=== PATIENT | female | born 1985 | race Caucasian/White ===

== ENCOUNTER 2016-07-28 14:53 | Emergency (ER) | payer OTHER ==
[~2016-07-28] VITALS: Ht 165.1 cm; Wt 90.7 kg
--- NOTE | 2016-07-28 15:48 | PD ---
HPI Travel History International Travel<30 Days: No Contact w/Intl Traveler<30Days: No Known Affected Area: No History of Present Illness HPI This patient is a 30-year-old 1 para 0 EDC is October 17, 2016 at 28 weeks and 3 days she presents the chief complaint of irregular contractions and pressure she states on after walking 4-5 miles she began having contractions which stopped on Thursday she awoke with irregular contractions and stopped on Thursday she began having pressure and tearing sensation in her vagina and felt fluid leaking the baby has been active no vaginal bleeding care with HOGA. Amnisure is negative. care is significant collagen vascular disease She does have urinary frequency urgency no dysuria positive hesitancy Mild nausea no fever or chills History Past Medical History Narrative Medical Allergy to penicillin and sulfa Obstetric History Obstetric History First Past Surgical History Narrative Surgical Breast surgery polyp removed from her sinus tonsils and adenoids Family History Narrative Family History Heart disease hypertension hypothyroidism Social History Alcohol Use: No Tobacco Use: No Substance Abuse: No Review of Systems General / Constitutional: No: Fever, Weight Gain, Weight Loss, Chills, Other Eyes: No: Diploplia, Blurred Vision, Visual changes, Pain, Photophobia, Other HENT: No: Headaches, Vertigo, Dental Difficulties, Lightheadedness, Other Cardiovascular: No: Irregular Rhythm, Chest Pain or Discomfort, Palpitations, Tachycardia, Syncope, Varicosities, Edema, Cyanosis, Other Respiratory: No: Cough, Short of Breath, Wheezing, Other Gastrointestinal: Nausea Genitourinary: Urgency, Frequency, Hesitancy, Dribbling, Incontinence, Pelvic Pain Musculoskeletal: No: Limited ROM, Weakness, Cramping, Edema, Pain, Other Skin: No Rash, No Itching, No Dryness, No Lumps, No Change in Pigmentation, No Change in Nails, No Alopecia, No Lesions, No Breast Lumps, No Breast Tenderness , No Breast Swelling, No Other Neurologic: No: Weakness, Dizziness, Syncope, Focal Abnormalities, Coordination Problem, Headache, Slurred Speech, Seizures, Other Psychiatric: No: Anxiety, Depression, Suicidal Ideations, Disorder of Thought, Mood Disorder, Substance Abuse, Homicidal Ideation, Other Physical Exam Narrative GENERAL: Well-nourished, well-developed patient. Alert oriented 3 and cooperative no acute distress SKIN: Warm and dry. HEAD: Normocephalic and atraumatic. EYES: No scleral icterus. No injection or drainage. ENT: No nasal drainage noted. Mucous membranes pink. Airway patent. NECK: Supple, trachea midline. No JVD. CARDIOVASCULAR: Regular rate and rhythm without murmurs, gallops, or rubs. RESPIRATORY: Breath sounds equal bilaterally. No accessory muscle use. ABDOMEN/GI: Gravid consistent with 28 weeks soft nontender no palpable contractions no epigastric or right upper quadrant tenderness no rebound Gravid to [-] weeks size 28 Fundal Height: [-] GENITOURINARY: Speculum exam was done no fluid no blood no discharge cervix is visibly closed External Genitalia: intact and normal in appearance BUS glands: [-] Cervix: [-] Posterior firm Dilatation: [-] 0 Effacement: [-] 0 Station: [-] High Presentation: [-] Membranes: [intact Uterine Contractions: [-]0 FHT's: Category: [-] 1 Baseline: [-]140 Reactive: [-] + Variability: [-] Moderate Decels: [-] 0 EXTREMITIES: No cyanosis or edema. 2+ reflexes BACK: Nontender without obvious deformity. No CVA tenderness. NEUROLOGICAL: Awake and alert. Motor and sensory grossly within normal limits. Five out of 5 muscle strength in all muscle groups. Normal speech. Data Data Vital Signs Reviewed: Yes (blood pressures 126/85 pulse 116 she is afebrile) Orders Vital Signs (Adult) .ON ADMISSION (07/28/16 15:37) ^ Labor Status (07/28/16 15:37) Urinalysis - C+S If Indicated (07/28/16 15:37) ^ Hydration (07/28/16 15:37) Pamg-1 Test .ONCE (07/28/16 15:37) [facility] Medical Record Reviewed: No Interpretation(s) 30-year-old at 28 weeks 3 days Not in labor No clinical evidence of ruptured membranes [place] Moseley Rule out UTI Plan External monitoring By mouth fluid hydration Urinalysis Rule out UTI kick counts Macrobid one by mouth twice a day for 7 days Keep next appointment Physician Communication present on labor and delivery and is aware of the patient's presence Diagnosis Diagnosis: Primary Impression: False labor before 37 completed weeks of gestation Qualified Code: O47.02 - False labor before 37 completed weeks of gestation, second trimester Additional Impressions: 28 weeks gestation of UTI (urinary tract infection) during Qualified Code: O23.42 - UTI (urinary tract infection) during , second trimester Disposition: 01 DISCHARGE HOME Condition: Stable Seema Camara MD Jul 28, 2016 15:48
[2016-07-28 16:28] LABS: BLOOD, URINE NEG (NEG); COMMENT (UR) CULT NOT INDICATED; CULTURE IF INDICATED CULT NOT INDICATED; GLUCOSE,URINE NEG (NEG); HYALINE CAST, URINE 1 /lpf (RARE); KETONE, URINE NEG (NEG); MUCUS URINE FEW /lpf (OCC); NITRITE,URINE NEG (NEG); PH, URINE 6.5 (5.0-8.5); SQUAMOUS EPITHELIAL CELL URINE 1 /hpf (0-5); URINE COLOR YELLOW (YELLW/STRAW)
== END 2016-07-28 16:38 | disposition home or self-care (01) ==
LOC: HOBED 14:53
DX: O47.03 False labor before 37 completed weeks of gestation, third trimester (principal); O23.43 Unspecified infection of urinary tract in pregnancy, third trimester; Z3A.28 28 weeks gestation of pregnancy
CPT/HCPCS: 81001; 84112; 99284

== ENCOUNTER 2016-09-09 15:38 | Inpatient (IN) | payer OTHER ==
[~2016-09-09] VITALS: Ht 170.2 cm; Wt 90.7 kg
[2016-09-09] VITALS (13 sets, daily range): BP systolic 140–149; BP diastolic 90–103; PULSE 91–122; RESP 18–20; TEMP 98.3–98.8
[2016-09-09 16:51] LABS: HEMATOCRIT 36.6 % (35.0-46.0); MEAN CELL VOLUME 81.3 FL (80.0-100.0); MEAN CORPUSCULAR HEMOGLOBIN 27.7 PG (27.0-34.0); MEAN CORPUSCULAR HGB CONC 34.1 % (32.0-36.0); PLATELET COUNT 300 TH/MM3 (150-450); RED CELL DISTRIBUTION WIDTH 14.5 % (11.6-17.2); REVIEW FLAG FINAL; WHITE BLOOD COUNT 12.8 TH/MM3 (4.0-11.0)
[2016-09-09 17:03] LABS: BACTERIA, URINE OCC /hpf; BLOOD, URINE NEG (NEG); COMMENT (UR) CULT NOT INDICATED; CULTURE IF INDICATED CULT NOT INDICATED; GLUCOSE,URINE NEG (NEG); KETONE, URINE NEG (NEG); MUCUS URINE FEW /lpf (OCC); NITRITE,URINE NEG (NEG); SQUAMOUS EPITHELIAL CELL URINE 7 /hpf (0-5); URINE COLOR YELLOW (YELLW/STRAW)
[2016-09-09 17:16] LABS: ALT (GPT) 30 U/L (10-53); ANION GAP 11 MEQ/L (5-15); AST (GOT) 21 U/L (15-37); BICARBONATE 21.1 MEQ/L (21.0-32.0); BLOOD UREA NITROGEN 11 MG/DL (7-18); CHLORIDE 108 MEQ/L (98-107); GLOMERULAR FILTRATION RATE 97 ML/MIN (>89); SODIUM (NA) 140 MEQ/L (136-145); URIC ACID 4.2 MG/DL (2.6-6.0)
[2016-09-09 17:19] LABS: ALKALINE PHOSPHATASE 145 U/L (45-117); TOTAL BILIRUBIN ADULT 0.2 MG/DL (0.2-1.0)
--- NOTE | 2016-09-09 17:43 | PD ---
HPI Chief Complaint Elevated blood pressure Date Seen: Sep 09, 2016 Travel History International Travel<30 Days: No Contact w/Intl Traveler<30Days: No Known Affected Area: No History of Present Illness HPI This patient is 30-year-old white female at 34 weeks 4 days followed by the [facility] clinic Dr. Carrington, she is sent over by the office for evaluation of hypertension high blood pressure. She's been normotensive throughout has no history of hypertension until just this past week when she started to develop some elevated pressures. She states she just turned in a 24-hour urine for evaluation we do not have that result. She states her baby is active and she denies bleeding or leakage of fluid or pain or contractions, heart rate tracing today is reactive and no contractions seen Para: 0 : 1 History Past Medical History Medical History: Denies Significant Hx Social History Alcohol Use: No Tobacco Use: No Substance Abuse: No Allergies-Medications (Allergen,Severity, Reaction): Coded Allergies: Penicillin (Verified Allergy, Severe, anaphylaxis, 07/28/16) Sulfa (Verified Allergy, Severe, unknown, 07/28/16) Review of Systems General / Constitutional: No: Fever, Weight Gain, Chills, Other Eyes: Blurred Vision, No: Diploplia, Visual changes, Pain, Photophobia HENT: Headaches, No: Vertigo, Lightheadedness Cardiovascular: No: Irregular Rhythm, Chest Pain or Discomfort, Palpitations, Tachycardia, Syncope, Varicosities, Edema, Cyanosis Respiratory: Short of Breath, No: Cough, Other Gastrointestinal: No: Nausea, Vomiting, Diarrhea Genitourinary: No: Decreased Urinary Output, Oliguria Musculoskeletal: No: Limited ROM, Weakness, Cramping, Edema, Pain Skin: No Rash, No Itching, No Dryness, No Lumps, No Change in Pigmentation, No Change in Nails, No Alopecia, No Lesions Neurologic: Dizziness, Headache, No: Weakness, Syncope, Focal Abnormalities, Coordination Problem, Slurred Speech, Seizures Psychiatric: No: Depression, Suicidal Ideations, Homicidal Ideation Endocrine: No: Heat Intolerance, Cold Intolerance, Polydipsia, Polyuria, Other Physical Exam Narrative GENERAL: Well-nourished, well-developed patient. SKIN: Warm and dry. HEAD: Normocephalic and atraumatic. EYES: No scleral icterus. No injection or drainage. ENT: No nasal drainage noted. Mucous membranes pink. Airway patent. NECK: Supple, trachea midline. No JVD. CARDIOVASCULAR: Regular rate and rhythm without murmurs, gallops, or rubs. RESPIRATORY: Breath sounds equal bilaterally. No accessory muscle use. BREASTS: Bilateral exam showed no masses , no retractions, no nipple discharge. ABDOMEN/GI: Abdomen soft, non-tender, bowel sounds present, no rebound, no guarding Gravid to [34-] weeks size Fundal Height: [34-] GENITOURINARY: Membranes: [intact ] Uterine Contractions: [-none] FHT's: Category: [-1] Baseline: [-144] Reactive: [-yes] Variability: [mod-] Decels: [-none] EXTREMITIES: No cyanosis 2+ pitting edema. Is noted and pretibial BACK: Nontender without obvious deformity. No CVA tenderness. NEUROLOGICAL: Awake and alert. Motor and sensory grossly within normal limits. Five out of 5 muscle strength in all muscle groups. Normal speech. DTRs 2+ Data Data Vital Signs Reviewed: Yes Orders Vital Signs (Adult) .ON ADMISSION (09/09/16 16:31) ^ Labor Status (09/09/16 16:31) Urinalysis - C+S If Indicated (09/09/16 16:31) Cbc No Diff, Includes Plts (09/09/16 16:31) Comprehensive Metabolic Panel (09/09/16 16:31) Uric Acid (09/09/16 16:31) Labs Laboratory Tests Test 09/09/16 16:30 White Blood Count 12.8 Red Blood Count 4.50 Hemoglobin 12.5 Hematocrit 36.6 Mean Corpuscular Volume 81.3 Mean Corpuscular Hemoglobin 27.7 Mean Corpuscular Hemoglobin 34.1 Concent Red Cell Distribution Width 14.5 Platelet Count 300 Mean Platelet Volume 9.2 Urine Color YELLOW Urine Turbidity HAZY Urine pH 6.0 Urine Specific [place] 1.032 Urine Protein 30 Urine Glucose (UA) NEG Urine Ketones NEG Urine Occult Blood NEG Urine Nitrite NEG Urine Bilirubin NEG Urine Urobilinogen 2.0 Urine Leukocyte Esterase SMALL Urine RBC 1 Urine WBC 1 Urine Squamous Epithelial 7 Cells Urine Bacteria OCC Urine Mucus FEW Microscopic Urinalysis Comment CULT NOT INDICATED Sodium Level 140 Potassium Level 4.0 Chloride Level 108 Carbon Dioxide Level 21.1 Anion Gap 11 Blood Urea Nitrogen 11 Creatinine 0.71 Estimat Glomerular Filtration 97 Rate Random Glucose 98 Uric Acid 4.2 Calcium Level 8.7 Total Bilirubin 0.2 Aspartate Amino Transf 21 (AST/SGOT) Alanine Aminotransferase 30 (ALT/SGPT) Alkaline Phosphatase 145 Total Protein 6.9 Albumin 2.6 [facility] Interpretation(s) The patient is a 30-year-old white female at 34 weeks 4 days who is sent over from the [facility] office for evaluation of blood pressure. He is had hypertension related to over the last half week or so, the pressures here on the 140s over 90s she has 1-2+ protein on her urine dipstick all other hypertensive lab was within normal limits. The last week she's had frontal headaches on and off, some mild visual changes she's blurriness a little bit with her vision she is had some minimal right upper quadrant pain abdominally and states that she's gained 12 pounds in the last week which is all water retention and she swelling in her hands the legs& face. Her NST is reactive not rigo. Cervix impression at this time is one of developing preeclampsia at 34 weeks that would require close monitoring and therapy and possibly delivery if no improvement noted it 34 Week she may be a candidate for inpatient care until 35 weeks and then delivery but the decision was made by her private OB team Plan Plan for this patient was discussed Dr. Nam's covering physician for her group [facility], she agrees patient needs to be in the hospital at this time to receive her first shot of steroids she plans to come and see her with the next several hours for evaluation, her serum laboratories within normal limits urinalysis shows some significant proteinuria and because of her recent shortness of breath will shoot a Baseline chest x-ray Diagnosis Diagnosis: Primary Impression: Pre-eclampsia in third trimester Condition: Darin Zendejas II, MD Sep 09, 2016 17:43
[2016-09-09] MEDS ORDERED: SODIUM CHLORIDE 0.9% FLUSH 5 ML FLUSH IVF PRN (17:45)
[2016-09-09] MEDS ORDERED: ONDANSETRON ODT 4 MG TAB PO PRN (17:45)
[2016-09-09] MEDS ORDERED: BETAMETHASONE SOD PHOS/ACETATE SUSP 30 MG/5 ML VIAL IM ONE (19:15)
--- NOTE | 2016-09-09 20:10 | RADRPT ---
EXAM DATE/TIME: 09/09/2016 19:33 [place] COMPARISON: No previous studies available for comparison. INDICATIONS : Shortness of breath. MEDICAL HISTORY : Asthma. SURGICAL HISTORY : Breast augmentation. ENCOUNTER: Initial ACUITY: 1 day PAIN SCORE: 0/10 LOCATION: Bilateral chest FINDINGS: The heart size is normal. The lungs are clear. Costophrenic angles are clear. The hilar structures a re normal. There appears to be a breast implant seen on the left side. CONCLUSION: No acute abnormality is seen. Saturnino Nixon MD on September 09, 2016 at 19:55 Board Certified Radiologist. This report was verified electronically.
--- NOTE | 2016-09-09 20:32 | PD.OB.ANTE ---
Subjective Interval History 30 yo mwf at 34+ weeks to L & D with elevated pressures, intermittent RUQT , swelling, nausea and severe headache now resolved. Admitted to antepartum by Dr. Lai, At this time sitting uip in bed comfortabley with no HERNANDEZ and eating sandwich. BP 142/94. All labs reassuring 1+ protein in urine. Strip category 1 Objective Vital Signs Vital Signs Date Time Temp Pulse Resp B/P Pulse Ox O2 Delivery O2 Flow Rate FiO2 09/09/16 19:55 96 09/09/16 19:30 18 09/09/16 19:18 99 142/94 09/09/16 19:17 142/95 09/09/16 17:00 104 143/103 09/09/16 16:45 107 140/96 09/09/16 16:38 98.8 20 09/09/16 16:30 122 146/91 09/09/16 16:20 105 147/90 Lab & Micro Results Test 09/09/16 16:30 White Blood Count 12.8 TH/MM3 Red Blood Count 4.50 MIL/MM3 Hemoglobin 12.5 GM/DL Hematocrit 36.6 % Mean Corpuscular Volume 81.3 FL Mean Corpuscular Hemoglobin 27.7 PG Mean Corpuscular Hemoglobin 34.1 % Concent Red Cell Distribution Width 14.5 % Platelet Count 300 TH/MM3 Mean Platelet Volume 9.2 FL Urine Color YELLOW Urine Turbidity HAZY Urine pH 6.0 Urine Specific [place] 1.032 Urine Protein 30 mg/dL Urine Glucose (UA) NEG mg/dL Urine Ketones NEG mg/dL Urine Occult Blood NEG Urine Nitrite NEG Urine Bilirubin NEG Urine Urobilinogen 2.0 MG/DL Urine Leukocyte Esterase SMALL Urine RBC 1 /hpf Urine WBC 1 /hpf Urine Squamous Epithelial 7 /hpf Cells Urine Bacteria OCC /hpf Urine Mucus FEW /lpf Microscopic Urinalysis Comment CULT NOT INDICATED Sodium Level 140 MEQ/L Potassium Level 4.0 MEQ/L Chloride Level 108 MEQ/L Carbon Dioxide Level 21.1 MEQ/L Anion Gap 11 MEQ/L Blood Urea Nitrogen 11 MG/DL Creatinine 0.71 MG/DL Estimat Glomerular Filtration 97 ML/MIN Rate Random Glucose 98 MG/DL Uric Acid 4.2 MG/DL Calcium Level 8.7 MG/DL Total Bilirubin 0.2 MG/DL Aspartate Amino Transf 21 U/L (AST/SGOT) Alanine Aminotransferase 30 U/L (ALT/SGPT) Alkaline Phosphatase 145 U/L Total Protein 6.9 GM/DL Albumin 2.6 GM/DL Physical Exam GENERAL: Well-nourished, well-developed patient. CARDIOVASCULAR: Regular rate and rhythm without murmurs, gallops, or rubs. RESPIRATORY: Breath sounds equal bilaterally. No accessory muscle use. ABDOMEN/GI: Abdomen soft, non-tender. Fundus: [-] GENITOURINARY: category 1 strip EXTREMITIES: No cyanosis 2+ edema Normal DTRs, non-tender, without signs of DVT. Assessment and Plan Assessment and Plan pre eclampsia not severe has time for steroid administration prior to delivery unless condition deteriorates Reba Nam MD Sep 09, 2016 20:32
[2016-09-09] MEDS: SODIUM CHLORIDE 0.9% FLUSH 5 ML FLUSH IVF SCH (21:00)
[2016-09-09] MEDS: FAMOTIDINE 20 MG TAB PO SCH (21:02)
[2016-09-10] VITALS (24 sets, daily range): BP systolic 131–142; BP diastolic 79–91; PULSE 81–120; RESP 18; TEMP 97.8–98.1
[2016-09-10] MEDS: ZOLPIDEM TARTRATE 5 MG TAB PO PRN ×2 (03:15→21:00)
[2016-09-10] MEDS: ACETAMINOPHEN 325 MG TAB PO PRN (03:25)
--- NOTE | 2016-09-10 08:38 | PD.OB.ANTE ---
Subjective Diagnosis: (1) Pre-eclampsia in third trimester Interval History still slight HERNANDEZ, no scotomata, vision slightly blurry, has RUQ discomfort when pressing with palpation Antepartum ROS: Reports: movement normal Objective Vital Signs Vital Signs Date Time Temp Pulse Resp B/P Pulse Ox O2 Delivery O2 Flow Rate FiO2 09/10/16 03:07 81 134/79 09/10/16 03:07 97.9 18 09/09/16 22:00 18 09/09/16 21:06 149/90 09/09/16 21:06 91 09/09/16 20:25 100 09/09/16 20:00 98.3 09/09/16 20:00 18 09/09/16 19:55 96 09/09/16 19:30 18 09/09/16 19:18 99 142/94 09/09/16 19:17 142/95 09/09/16 17:00 104 143/103 09/09/16 16:45 107 140/96 09/09/16 16:38 98.8 20 09/09/16 16:30 122 146/91 09/09/16 16:20 105 147/90 Lab & Micro Results Test 09/09/16 16:30 White Blood Count 12.8 TH/MM3 Red Blood Count 4.50 MIL/MM3 Hemoglobin 12.5 GM/DL Hematocrit 36.6 % Mean Corpuscular Volume 81.3 FL Mean Corpuscular Hemoglobin 27.7 PG Mean Corpuscular Hemoglobin 34.1 % Concent Red Cell Distribution Width 14.5 % Platelet Count 300 TH/MM3 Mean Platelet Volume 9.2 FL Urine Color YELLOW Urine Turbidity HAZY Urine pH 6.0 Urine Specific [place] 1.032 Urine Protein 30 mg/dL Urine Glucose (UA) NEG mg/dL Urine Ketones NEG mg/dL Urine Occult Blood NEG Urine Nitrite NEG Urine Bilirubin NEG Urine Urobilinogen 2.0 MG/DL Urine Leukocyte Esterase SMALL Urine RBC 1 /hpf Urine WBC 1 /hpf Urine Squamous Epithelial 7 /hpf Cells Urine Bacteria OCC /hpf Urine Mucus FEW /lpf Microscopic Urinalysis Comment CULT NOT INDICATED Sodium Level 140 MEQ/L Potassium Level 4.0 MEQ/L Chloride Level 108 MEQ/L Carbon Dioxide Level 21.1 MEQ/L Anion Gap 11 MEQ/L Blood Urea Nitrogen 11 MG/DL Creatinine 0.71 MG/DL Estimat Glomerular Filtration 97 ML/MIN Rate Random Glucose 98 MG/DL Uric Acid 4.2 MG/DL Calcium Level 8.7 MG/DL Total Bilirubin 0.2 MG/DL Aspartate Amino Transf 21 U/L (AST/SGOT) Alanine Aminotransferase 30 U/L (ALT/SGPT) Alkaline Phosphatase 145 U/L Total Protein 6.9 GM/DL Albumin 2.6 GM/DL Physical Exam GENERAL: Well-nourished, well-developed patient. CARDIOVASCULAR: Regular rate and rhythm without murmurs, gallops, or rubs. RESPIRATORY: Breath sounds equal bilaterally. No accessory muscle use. ABDOMEN/GI: Abdomen soft, non-tender. Fundus: [-] GENITOURINARY: External Genitalia: intact and normal in appearance Cervix: [-] deferred Dilatation: [-] Effacement: [-] Station: [-] Presentation: [-] Membranes: [-] Uterine Contractions: [-] FHT's: Category: [-]1 Baseline: [-] Reactive: [-]R Variability: [-] Decels: [-] EXTREMITIES: No cyanosis, min edema, non-tender, without signs of DVT. Assessment and Plan Assessment and Plan pre eclampsia not severe, labs normal, 24 hr urine pending has time for steroid administration prior to delivery unless condition deteriorates Lauren Carrington MD Sep 10, 2016 08:38
[2016-09-10] MEDS: SODIUM CHLORIDE 0.9% FLUSH 5 ML FLUSH IVF SCH (09:00)
[2016-09-10 12:18] LABS: AUTOMATED NEUTROPHIL # 16.5 TH/MM3 (1.8-7.7); BASOPHIL % 0.2 % (0.0-2.0); HEMATOCRIT 36.6 % (35.0-46.0); HEMO FLAGS DIFF FINAL; LYMPH % 7.7 % (9.0-44.0); LYMPHOCYTE # 1.4 TH/MM3 (1.0-4.8); MEAN CELL VOLUME 82.6 FL (80.0-100.0); MEAN CORPUSCULAR HEMOGLOBIN 27.6 PG (27.0-34.0); MEAN CORPUSCULAR HGB CONC 33.4 % (32.0-36.0); MONO % 4.7 % (0.0-8.0); NEUT % 87.4 % (16.0-70.0); PLATELET COUNT 294 TH/MM3 (150-450); RED BLOOD COUNT 4.44 MIL/MM3 (4.00-5.30); WHITE BLOOD COUNT 18.9 TH/MM3 (4.0-11.0)
[2016-09-10 12:39] LABS: ALKALINE PHOSPHATASE 149 U/L (45-117); ALT (GPT) 27 U/L (10-53); AST (GOT) 17 U/L (15-37); INDIRECT BILIRUBIN 0.1 MG/DL (0.0-0.8); TOTAL BILIRUBIN ADULT 0.2 MG/DL (0.2-1.0); URIC ACID 4.5 MG/DL (2.6-6.0)
[2016-09-10 13:55] LABS: AMPHETAMINE, URINE NEG (NEG); BARBITURATES, URINE NEG (NEG); COCAINE, URINE NEG (NEG)
[2016-09-10] MEDS: FAMOTIDINE 20 MG TAB PO SCH ×2 (17:08→21:00)
[2016-09-10] MEDS ORDERED: BETAMETHASONE SOD PHOS/ACETATE SUSP 30 MG/5 ML VIAL IM ONE (19:15)
--- NOTE | 2016-09-10 19:43 | HHI.DCPOC ---
Discharge Care Plan Your Health Problems Are: Abdominal pain Report Symptoms to Your Doctor -Temperate above 100.5 degrees -Redness, of incision or excessive or foul smelling drainage -Unusual pain or calf pain -Increased vaginal bleeding -Painful or difficulty urinating -Feelings of extreme sadness or anxiety after 2 weeks Goals to Promote Your Health * To prevent worsening of your condition and complications * To maintain your health at the optimal level Directions to Meet Your Goals Take your medications as prescribed Follow your dietary instruction Follow activity as directed Ensure plenty of rest for recovery Drink fluids for hydration Keep your appointments as scheduled Take your immunizations and boosters as scheduled If your symptoms worsen call your PCP, if no PCP go to Urgent Care Center or Emergency Room Smoking is Dangerous to Your Health. Avoid second hand smoke Call the 24-hour crisis hotline for domestic abuse at Lauren Carrington MD Sep 10, 2016 19:43
[2016-09-11] MEDS: ACETAMINOPHEN 325 MG TAB PO PRN ×3 (07:10→16:56)
[2016-09-11] MEDS: FAMOTIDINE 20 MG TAB PO SCH (09:38)
[2016-09-11] MEDS ORDERED: SODIUM CHLOR 0.9% 1000 ML INJ 1,000 ML OTHER PRN (10:24)
[2016-09-11] MEDS ORDERED: MINERAL OIL 10 ML VIAL TOPICAL PRN (10:30)
[2016-09-11] MEDS ORDERED: SODIUM CHLORIDE 0.9% FLUSH 5 ML FLUSH IV FLUSH PRN (10:30)
[2016-09-11] MEDS ORDERED: OXYTOCIN 30 UNITS-500ML PREMIX 500 ML IV ONE (10:30)
[2016-09-11] MEDS ORDERED: MISOPROSTOL 25 MCG SUPP VAGINAL ONE ×2 (10:30→20:30)
[2016-09-11] MEDS ORDERED: LIDOCAINE HCL 1% 50 ML VIAL I-DERMAL PRN (10:30)
[2016-09-11] MEDS ORDERED: CITRIC ACID-SODIUM CITRATE LIQ 30 ML UDC PO SCH (10:30)
[2016-09-11] MEDS ORDERED: LIDOCAINE HCL 1% 50 ML VIAL INFIL PRN (10:30)
[2016-09-11] MEDS ORDERED: CALCIUM GLUCONATE 10% 1 GM/10 ML VIAL IV PUSH PRN (10:45)
[2016-09-11] MEDS ORDERED: MAGNESIUM SULFATE 4 GM PREMIX 100 ML IV ONE (10:45)
[2016-09-11] MEDS ORDERED: ONDANSETRON ODT 4 MG TAB PO PRN (10:45)
[2016-09-11] MEDS ORDERED: SODIUM CHLOR 0.9% 1000 ML INJ 1,000 ML IV PRN (10:46)
[2016-09-11 11:26] LABS: AUTOMATED NEUTROPHIL # 17.5 TH/MM3 (1.8-7.7); BASOPHIL % 0.1 % (0.0-2.0); EOSINOPHIL % 0.1 % (0.0-4.0); HEMATOCRIT 39.2 % (35.0-46.0); HEMO FLAGS DIFF FINAL; LYMPH % 9.1 % (9.0-44.0); LYMPHOCYTE # 1.9 TH/MM3 (1.0-4.8); MEAN CELL VOLUME 82.6 FL (80.0-100.0); MEAN CORPUSCULAR HEMOGLOBIN 27.2 PG (27.0-34.0); MEAN CORPUSCULAR HGB CONC 32.9 % (32.0-36.0); MONO % 7.1 % (0.0-8.0); NEUT % 83.6 % (16.0-70.0); PLATELET COUNT 332 TH/MM3 (150-450); RED BLOOD COUNT 4.74 MIL/MM3 (4.00-5.30); RED CELL DISTRIBUTION WIDTH 14.6 % (11.6-17.2); WHITE BLOOD COUNT 20.9 TH/MM3 (4.0-11.0)
--- NOTE | 2016-09-11 11:33 | PD.OB.ANTE ---
Subjective Diagnosis: (1) Pre-eclampsia in third trimester Diagnosis: Principal Interval History Pt with continued headaches, blurry vision, epigastric and RUQ pain Good FM, irreg contraction. No lof/vb Objective Vital Signs Vital Signs Date Time Temp Pulse Resp B/P Pulse Ox O2 Delivery O2 Flow Rate FiO2 09/10/16 20:57 18 09/10/16 20:47 97 139/83 09/10/16 20:05 101 09/10/16 20:00 103 09/10/16 19:46 82 139/83 09/10/16 19:45 83 09/10/16 19:40 98.1 09/10/16 19:40 96 09/10/16 19:39 18 09/10/16 17:11 107 137/84 09/10/16 17:10 97.8 18 09/10/16 12:38 118 142/83 09/10/16 12:35 120 09/10/16 12:30 119 09/10/16 12:27 18 09/10/16 12:25 114 09/10/16 12:20 113 09/10/16 12:15 115 09/10/16 12:10 112 09/10/16 12:05 116 09/10/16 12:00 107 Lab & Micro Results Test 09/10/16 09/11/16 11:42 11:00 White Blood Count 18.9 TH/MM3 20.9 TH/MM3 Red Blood Count 4.44 MIL/MM3 4.74 MIL/MM3 Hemoglobin 12.2 GM/DL 12.9 GM/DL Hematocrit 36.6 % 39.2 % Mean Corpuscular Volume 82.6 FL 82.6 FL Mean Corpuscular Hemoglobin 27.6 PG 27.2 PG Mean Corpuscular Hemoglobin 33.4 % 32.9 % Concent Red Cell Distribution Width 14.0 % 14.6 % Platelet Count 294 TH/MM3 332 TH/MM3 Mean Platelet Volume 9.0 FL 9.1 FL Neutrophils (%) (Auto) 87.4 % 83.6 % Lymphocytes (%) (Auto) 7.7 % 9.1 % Monocytes (%) (Auto) 4.7 % 7.1 % Eosinophils (%) (Auto) 0.0 % 0.1 % Basophils (%) (Auto) 0.2 % 0.1 % Neutrophils # (Auto) 16.5 TH/MM3 17.5 TH/MM3 Lymphocytes # (Auto) 1.4 TH/MM3 1.9 TH/MM3 Monocytes # (Auto) 0.9 TH/MM3 1.5 TH/MM3 Eosinophils # (Auto) 0.0 TH/MM3 0.0 TH/MM3 Basophils # (Auto) 0.0 TH/MM3 0.0 TH/MM3 CBC Comment DIFF FINAL DIFF FINAL Differential Comment Uric Acid 4.5 MG/DL Total Bilirubin 0.2 MG/DL Direct Bilirubin LESS THAN 0.1 MG/DL Indirect Bilirubin 0.1 MG/DL Aspartate Amino Transf 17 U/L (AST/SGOT) Alanine Aminotransferase 27 U/L (ALT/SGPT) Alkaline Phosphatase 149 U/L Total Protein 6.8 GM/DL Albumin 2.5 GM/DL Physical Exam GENERAL: Well-nourished, well-developed patient. CARDIOVASCULAR: Regular rate and rhythm without murmurs, gallops, or rubs. RESPIRATORY: Breath sounds equal bilaterally. No accessory muscle use. ABDOMEN/GI: Abdomen soft, non-tender. Fundus: [-] GENITOURINARY: External Genitalia: intact and normal in appearance Cervix: cl/20/-2 Presentation: [facility] Membranes: intact Uterine Contractions: [-] FHT's: Category:I Baseline:140 Reactive:y Variability:mod Decels: [-] EXTREMITIES: No cyanosis or edema, non-tender, without signs of DVT. Reflexes 3 + , + clonus Assessment and Plan Problem List: (1) Pre-eclampsia in third trimester Status: Acute Assessment and Plan 30 yo G1 at 34w5d withPre-eclampsia with severe features including hyper- reflexia, clonus, headache, vis changes and ruq pain. Will proceed with induction and initiation of magnesium. will start iol with misoprostol and then re-evaluate for further management. 1) Pre-e with severe features- magnesium prophylaxis, strict I/O's. am labs pending 2) IOL- misoprostol ordered. aware of possibility of prolonged induction. GBS rapid swab performed 3) Anna Danlos- nl echo 4) Fetus cephalic, Cat I NgYamileth dubois MD Sep 11, 2016 11:33
[2016-09-11] MEDS: MAGNESIUM SULFATE 40 GM PREMIX 1,000 ML IV SCH (11:36)
[2016-09-11] MEDS ORDERED: LABETALOL HCL 100 MG/20 ML VIAL IV PUSH PRN (11:45)
[2016-09-11 11:48] LABS: ALKALINE PHOSPHATASE 151 U/L (45-117); ALT (GPT) 31 U/L (10-53); ANION GAP 11 MEQ/L (5-15); AST (GOT) 39 U/L (15-37); BICARBONATE 19.9 MEQ/L (21.0-32.0); BLOOD UREA NITROGEN 11 MG/DL (7-18); CHLORIDE 108 MEQ/L (98-107); GLOMERULAR FILTRATION RATE 71 ML/MIN (>89); POTASSIUM 4.5 MEQ/L (3.5-5.1); SODIUM (NA) 139 MEQ/L (136-145); TOTAL BILIRUBIN ADULT 0.4 MG/DL (0.2-1.0); URIC ACID 4.7 MG/DL (2.6-6.0)
[2016-09-11] MEDS ORDERED: TRICTAB PO (12:59)
[2016-09-11] MEDS ORDERED: MISOPROSTOL 25 MCG SUPP VAGINAL PRN (14:30)
[2016-09-11] MEDS: LACTATED RINGER'S 1000 ML INJ 1,000 ML IV SCH (16:06)
[2016-09-11] MEDS ORDERED: fentaNYL 2MCG-BUPIV 0.125% INJ 100 ML ONE (17:35)
--- NOTE | 2016-09-11 17:37 | PD.LABORPN ---
Subjective Subjective Pt needing tylenol for headache recently. epigastric and ruq pain presently improved Objective Vital Signs 130-140/70-80's on OBTV vitals adequate uop Objective Pelvic Exam: Cervix: 08/15/-2, soft. Marcos bulb placed for mechanical dilation Cephalic Membranes: [intact Uterine Contractions: 5-6min FHT's: Category: I Baseline:140 Reactive:n Variability: mod Decels: [-] Assessment/Plan Problem List: (1) Pre-eclampsia in third trimester Assessment and Plan 30 yo G1 at 34w5d with Pre-eclampsia with severe features including hyper- reflexia, clonus, headache, vis changes and ruq pain. 1) Pre-e with severe features- magnesium prophylaxis, strict I/O's. am labs noting an elevation of liver enzymes compared to time of admission 2) IOL- misoprostol second dose placed an hour ago. FB placed with speculum during this check, pt tolerated well. aware of possibility of prolonged induction. 3) Anna Danlos- nl echo 4) Fetus cephalic, Cat I. s/p bms on 09/09 and 09/10/16 5) GBS negative Yamileth Ng MD Sep 11, 2016 17:37
[2016-09-11] MEDS ORDERED: OXYTOCIN 30 UNITS-500ML PREMIX 500 ML IV SCH (20:30)
[2016-09-11] MEDS: SODIUM CHLORIDE 0.9% FLUSH 5 ML FLUSH IV FLUSH SCH (21:00)
[2016-09-12] MEDS ORDERED: OXYTOCIN 30 UNITS-500ML PREMIX 500 ML IV SCH (08:00)
--- NOTE | 2016-09-12 08:02 | PD.LABORPN ---
Subjective Subjective Patient has less H/A pain and resolving "blurred " vision of right eye. Denies N /V/D; Pain is @4-5/10. Objective Objective Pelvic Exam: Cervix: [-] Dilatation: 4-5 Effacement: 60 Station: -2 Presentation:vtx Membranes: AROM Uterine Contractions: irregular FHT's: Category: 1 Baseline: [-] Reactive: [-] Variability: [-] Decels: no Assessment/Plan Problem List: (1) Pre-eclampsia in third trimester Assessment and Plan HD#3, IOL, AROM,Pitocin iv. c/o H/A and visual disturbance have improved,exam is nonfocal neurologically. Will anticipate unless her clinical symptoms warrant CD. Order pre-eclampsia labs this morning. Ciaran Hope MD Sep 12, 2016 08:02
[2016-09-12 08:58] LABS: HEMATOCRIT 36.8 % (35.0-46.0); MEAN CORPUSCULAR HEMOGLOBIN 26.9 PG (27.0-34.0); MEAN CORPUSCULAR HGB CONC 32.5 % (32.0-36.0); PLATELET COUNT 280 TH/MM3 (150-450); RED BLOOD COUNT 4.44 MIL/MM3 (4.00-5.30); RED CELL DISTRIBUTION WIDTH 14.6 % (11.6-17.2); REVIEW FLAG FINAL; WHITE BLOOD COUNT 16.2 TH/MM3 (4.0-11.0)
[2016-09-12] MEDS ORDERED: ePHEDrine/NS 25 MG/5 ML SYR ONE (08:58)
[2016-09-12] MEDS ORDERED: fentaNYL 2MCG-BUPIV 0.125% INJ 100 ML ONE (08:58)
[2016-09-12] MEDS: SODIUM CHLORIDE 0.9% FLUSH 5 ML FLUSH IV FLUSH SCH (09:00)
[2016-09-12] MEDS: FAMOTIDINE 20 MG TAB PO SCH (09:00)
[2016-09-12] MEDS: LACTATED RINGER'S 1000 ML INJ 1,000 ML IV SCH ×2 (09:20→15:10)
[2016-09-12 09:32] LABS: BICARBONATE 23.3 MEQ/L (21.0-32.0); MAGNESIUM 4.4 MG/DL (1.5-2.5); POTASSIUM 3.6 MEQ/L (3.5-5.1)
[2016-09-12] MEDS ORDERED: DO NOT ADMINISTER ANTICOAGULANTS XX PRN (10:45)
[2016-09-12] MEDS ORDERED: ePHEDrine/NS 25 MG/5 ML SYR IV PRN (10:45)
[2016-09-12] MEDS ORDERED: NO SYSTEM NARCOTICS XX PRN (10:45)
[2016-09-12] MEDS ORDERED: fentaNYL 2MCG-BUPIV 0.125% 100 ML EPIDURAL SCH (10:45)
[2016-09-12] MEDS: ACETAMINOPHEN 325 MG TAB PO PRN (12:43)
--- NOTE | 2016-09-12 15:20 | PD.OB.DELI ---
Anesthesia: Epidural Episiotomy: None Vaginal Delivery: Normal Presentation: Occiput anterior Nuchal Cord: None Delayed cord clamping (45 sec): No Infant: Female One Minute : 7 Five Minute : 8 Care: Suctioned, Spontaneous crying, Responded to stimulation Placenta: Spontaneous delivery, Intact, 3 vessel cord Laceration: Vaginal laceration (left labial minor) Repair: Vicryl Ciaran Canales MD Sep 12, 2016 15:20
--- NOTE | 2016-09-12 15:27 | HHI.DCPOC ---
Discharge Care Plan Your Health Problems Are: Abdominal pain Fever, temperature>100.4 Shortness of breath Vaginal delivery Report Symptoms to Your Doctor -Temperate above 100.5 degrees -Redness, of incision or excessive or foul smelling drainage -Unusual pain or calf pain -Increased vaginal bleeding -Painful or difficulty urinating -Feelings of extreme sadness or anxiety after 2 weeks Goals to Promote Your Health * To prevent worsening of your condition and complications * To maintain your health at the optimal level Directions to Meet Your Goals Take your medications as prescribed Follow your dietary instruction Follow activity as directed Ensure plenty of rest for recovery Drink fluids for hydration Keep your appointments as scheduled Take your immunizations and boosters as scheduled If your symptoms worsen call your PCP, if no PCP go to Urgent Care Center or Emergency Room Smoking is Dangerous to Your Health. Avoid second hand smoke Call the 24-hour crisis hotline for domestic abuse at Ciaran Hope MD Sep 12, 2016 15:27
[2016-09-12] MEDS ORDERED: ONDANSETRON ODT 4 MG TAB PO PRN (15:30)
[2016-09-12] MEDS ORDERED: SODIUM CHLORIDE 0.9% FLUSH 5 ML FLUSH IV PRN (15:30)
[2016-09-12] MEDS ORDERED: ALUMINUM/MAGNESIUM/SIMETH 30 ML CUP PO PRN (15:30)
[2016-09-12] MEDS ORDERED: ACETAMINOPHEN 325 MG TAB PO PRN (15:30)
[2016-09-12] MEDS ORDERED: BENZOCAINE 20% TOPICAL SPRAY 60 ML CAN TOPICAL PRN (15:30)
[2016-09-12] MEDS ORDERED: WITCH HAZEL 50%/GLYCERIN 12.5% 40 PAD JAR TOPICAL PRN (15:30)
[2016-09-12] MEDS ORDERED: OXYTOCIN 10 UNIT/ML AMP XX ONE (15:30)
[2016-09-12] MEDS ORDERED: ZOLPIDEM TARTRATE 5 MG TAB PO PRN (15:30)
[2016-09-12] MEDS ORDERED: DIPHTH/TETANUS/ACEL PERTUSSIS (BOOSTER) 0.5 ML VIAL/PFS IM ONE (16:00)
[2016-09-12] MEDS ORDERED: MEASLES, MUMPS, RUBELLA VACCINE 0.5 ML VIAL SQ ONE (16:00)
[2016-09-12] MEDS: IBUPROFEN 600 MG TAB PO PRN (16:58)
[2016-09-12] MEDS ORDERED: AMMONIA AROMATIC INHALANT 0.33 ML ONE (17:43)
[2016-09-12] MEDS: MAGNESIUM SULFATE 40 GM PREMIX 1,000 ML IV SCH (18:19)
[2016-09-12] MEDS ORDERED: SODIUM CHLORIDE 0.9% FLUSH 5 ML FLUSH IV SCH (21:00)
[2016-09-12] MEDS: ZOLPIDEM TARTRATE 5 MG TAB PO PRN (21:56)
[2016-09-13] MEDS: oxyCODONE/ACETAMINOPHEN 5 MG/325 MG TAB PO PRN ×2 (04:10→19:20)
--- NOTE | 2016-09-13 11:54 | HHI.OB ---
Subjective Post Day: 1 Remarks PPD#1; stable, doing well Objective Objective Remarks GENERAL: Well-nourished, well-developed patient. CARDIOVASCULAR: Regular rate and rhythm without murmurs, gallops, or rubs. RESPIRATORY: Breath sounds equal bilaterally. No accessory muscle use. ABDOMEN/GI: Abdomen soft, non-tender. Fundus: Firm, non-tender at umbilicus. GENITOURINARY: Light to moderate bleeding. EXTREMITIES: No cyanosis or edema, non-tender, without signs of DVT. Medications and IVs Current Medications Medications (Trade) Dose Ordered Sig/Lili Route Start Time Stop Time Status Last Admin (Ambien) 5 mg HS PRN PO 09/09/16 17:45 09/12/16 21:56 (Pepcid) 20 mg Q12HR PO 09/09/16 21:00 09/11/16 09:38 (NS Flush) 2 ml BID IV FLUSH 09/11/16 21:00 IV Flush 2 ml 2 ml UNSCH PRN IV FLUSH 09/11/16 10:30 (NS 1000 ml Inj) 1,000 ml @ 100 mls/hr Q10H PRN IV 09/11/16 10:46 (fentaNYL INJ) 50 mcg Q1H PRN IV PUSH 09/11/16 10:30 09/11/16 17:14 (fentaNYL INJ) 100 mcg Q1H PRN IV PUSH 09/11/16 10:30 09/12/16 09:26 Mineral Oil 10 ml 10 ml UNSCH PRN TOPICAL 09/11/16 10:30 (Magnesium Sulfate 40 Gm Premix) 1,000 ml @ 50 mls/hr Q20H IV 09/11/16 10:31 09/12/16 18:19 (Calcium Gluconate Inj) 1 gm UNSCH PRN IV PUSH 09/11/16 10:45 Ondansetron HCl 4 mg 4 mg Q6H PRN PO 09/11/16 10:45 Lactated Ringer's 1,000 ml @ 75 mls/hr [id number] IV 09/11/16 12:30 09/12/16 09:20 Oxytocin 500 ml @ 0 mls/hr TITRATE IV 09/12/16 08:00 (fentaNYL 2MCG-BUPIV 0.125% INJ) 100 ml @ 0 mls/hr TITRATE EPIDURAL 09/12/16 10:45 (Tylenol) 650 mg Q4H PRN PO 09/12/16 15:30 (Motrin) 600 mg Q6H PRN PO 09/12/16 15:30 09/12/16 16:58 (Percocet 5-325 Mg) 1 tab Q4H PRN PO 09/12/16 15:30 09/13/16 04:10 (Americaine 20% Top Spr) 1 spray Q4H PRN TOPICAL 09/12/16 15:30 (Tucks Pads) 1 applic QID PRN TOPICAL 09/12/16 15:30 (Etelvina-Colace) 2 tab Q12H PRN PO 09/12/16 15:30 (Mag-Al Plus Susp Liq) 15 ml Q8H PRN PO 09/12/16 15:30 Assessment/Plan Problem List: (1) Pre-eclampsia in third trimester Assessment and Plan 30 yo G1 at 34w5d withPre-eclampsia, S/P , BP stable; doing well. Plan d/c magnesium,tranfer to 1 Ciaran Swanson MD Sep 13, 2016 11:54
[2016-09-13] MEDS: IBUPROFEN 600 MG TAB PO PRN (14:54)
[2016-09-13] MEDS: FAMOTIDINE 20 MG TAB PO SCH (21:00)
[2016-09-13] MEDS: SODIUM CHLORIDE 0.9% FLUSH 5 ML FLUSH IV FLUSH SCH (21:00)
[2016-09-13] MEDS: DOCUSATE SODIUM 50 MG/SENNA 8.6 MG TAB PO PRN ×2 (22:40→22:42)
[2016-09-14] MEDS: oxyCODONE/ACETAMINOPHEN 5 MG/325 MG TAB PO PRN ×4 (00:14→19:45)
[2016-09-14] MEDS: LACTATED RINGER'S 1000 ML INJ 1,000 ML IV SCH (01:06)
[2016-09-14] MEDS: DOCUSATE SODIUM 50 MG/SENNA 8.6 MG TAB PO PRN ×2 (07:49→19:45)
[2016-09-14] MEDS: IBUPROFEN 600 MG TAB PO PRN ×3 (07:49→19:45)
--- NOTE | 2016-09-14 10:41 | HHI.OB ---
Subjective Post Day: 2 Remarks PPD#2; S/P , Pre-eclamptic, BPR stable, No c/o Objective Objective Remarks GENERAL: Well-nourished, well-developed patient. CARDIOVASCULAR: Regular rate and rhythm without murmurs, gallops, or rubs. RESPIRATORY: Breath sounds equal bilaterally. No accessory muscle use. ABDOMEN/GI: Abdomen soft, non-tender. Fundus: Firm, non-tender at umbilicus. GENITOURINARY: Light to moderate bleeding. EXTREMITIES: No cyanosis or edema, non-tender, without signs of DVT. Medications and IVs Current Medications Medications (Trade) Dose Ordered Sig/Lili Route Start Time Stop Time Status Last Admin (Ambien) 5 mg HS PRN PO 09/09/16 17:45 09/12/16 21:56 (Pepcid) 20 mg Q12HR PO 09/09/16 21:00 09/11/16 09:38 (NS Flush) 2 ml BID IV FLUSH 09/11/16 21:00 09/13/16 21:00 IV Flush 2 ml 2 ml UNSCH PRN IV FLUSH 09/11/16 10:30 (NS 1000 ml Inj) 1,000 ml @ 100 mls/hr Q10H PRN IV 09/11/16 10:46 (fentaNYL INJ) 50 mcg Q1H PRN IV PUSH 09/11/16 10:30 09/11/16 17:14 (fentaNYL INJ) 100 mcg Q1H PRN IV PUSH 09/11/16 10:30 09/12/16 09:26 (Muri-Lube Oil) 10 ml UNSCH PRN TOPICAL 09/11/16 10:30 (Calcium Gluconate Inj) 1 gm UNSCH PRN IV PUSH 09/11/16 10:45 Ondansetron HCl 4 mg 4 mg Q6H PRN PO 09/11/16 10:45 Lactated Ringer's 1,000 ml @ 75 mls/hr [id number] IV 09/11/16 12:30 09/12/16 09:20 Oxytocin 500 ml @ 0 mls/hr TITRATE IV 09/12/16 08:00 (fentaNYL 2MCG-BUPIV 0.125% INJ) 100 ml @ 0 mls/hr TITRATE EPIDURAL 09/12/16 10:45 (Tylenol) 650 mg Q4H PRN PO 09/12/16 15:30 (Motrin) 600 mg Q6H PRN PO 09/12/16 15:30 09/14/16 07:49 (Percocet 5-325 Mg) 1 tab Q4H PRN PO 09/12/16 15:30 09/14/16 07:48 (Americaine 20% Top Spr) 1 spray Q4H PRN TOPICAL 09/12/16 15:30 (Tucks Pads) 1 applic QID PRN TOPICAL 09/12/16 15:30 (Etelvina-Colace) 2 tab Q12H PRN PO 09/12/16 15:30 09/14/16 07:49 (Mag-Al Plus Susp Liq) 15 ml Q8H PRN PO 09/12/16 15:30 Assessment/Plan Problem List: (1) Pre-eclampsia in third trimester Assessment and Plan 30 yo G1 at 34w5d with Pre-eclampsia, S/P , BP stable Discussed progress, will plan discharge for tomorrow; Discharge Planning Plan for tomorrow Ciaran Hope MD Sep 14, 2016 10:41
[2016-09-14] MEDS: FAMOTIDINE 20 MG TAB PO SCH (20:41)
[2016-09-14] MEDS: SODIUM CHLORIDE 0.9% FLUSH 5 ML FLUSH IV FLUSH SCH (20:42)
[2016-09-15] MEDS: oxyCODONE/ACETAMINOPHEN 5 MG/325 MG TAB PO PRN ×2 (01:00→07:40)
[2016-09-15] MEDS: IBUPROFEN 600 MG TAB PO PRN ×2 (01:33→07:40)
[2016-09-15] MEDS: FAMOTIDINE 20 MG TAB PO SCH (07:40)
--- NOTE | 2016-09-15 08:43 | HHI.OB ---
Subjective Post Day: 3 Remarks Mom and baby doing well. nursing no complaints Objective Objective Remarks GENERAL: Well-nourished, well-developed patient. CARDIOVASCULAR: Regular rate and rhythm without murmurs, gallops, or rubs. RESPIRATORY: Breath sounds equal bilaterally. No accessory muscle use. ABDOMEN/GI: Abdomen soft, non-tender. Fundus: Firm, non-tender at umbilicus. GENITOURINARY: Light to moderate bleeding. EXTREMITIES: No cyanosis or edema, non-tender, without signs of DVT. Medications and IVs Current Medications Medications (Trade) Dose Ordered Sig/Lili Route Start Time Stop Time Status Last Admin (Ambien) 5 mg HS PRN PO 09/09/16 17:45 09/12/16 21:56 (Pepcid) 20 mg Q12HR PO 09/09/16 21:00 09/11/16 09:38 (NS Flush) 2 ml BID IV FLUSH 09/11/16 21:00 09/13/16 21:00 IV Flush 2 ml 2 ml UNSCH PRN IV FLUSH 09/11/16 10:30 (NS 1000 ml Inj) 1,000 ml @ 100 mls/hr Q10H PRN IV 09/11/16 10:46 (fentaNYL INJ) 50 mcg Q1H PRN IV PUSH 09/11/16 10:30 09/11/16 17:14 (fentaNYL INJ) 100 mcg Q1H PRN IV PUSH 09/11/16 10:30 09/12/16 09:26 (Muri-Lube Oil) 10 ml UNSCH PRN TOPICAL 09/11/16 10:30 (Calcium Gluconate Inj) 1 gm UNSCH PRN IV PUSH 09/11/16 10:45 Ondansetron HCl 4 mg 4 mg Q6H PRN PO 09/11/16 10:45 Lactated Ringer's 1,000 ml @ 75 mls/hr [id number] IV 09/11/16 12:30 09/12/16 09:20 Oxytocin 500 ml @ 0 mls/hr TITRATE IV 09/12/16 08:00 (fentaNYL 2MCG-BUPIV 0.125% INJ) 100 ml @ 0 mls/hr TITRATE EPIDURAL 09/12/16 10:45 (Tylenol) 650 mg Q4H PRN PO 09/12/16 15:30 (Motrin) 600 mg Q6H PRN PO 09/12/16 15:30 09/15/16 07:40 (Percocet 5-325 Mg) 1 tab Q4H PRN PO 09/12/16 15:30 09/15/16 07:40 (Americaine 20% Top Spr) 1 spray Q4H PRN TOPICAL 09/12/16 15:30 09/14/16 19:49 (Tucks Pads) 1 applic QID PRN TOPICAL 09/12/16 15:30 09/14/16 19:49 (Etelvina-Colace) 2 tab Q12H PRN PO 09/12/16 15:30 09/14/16 19:45 (Mag-Al Plus Susp Liq) 15 ml Q8H PRN PO 09/12/16 15:30 Assessment/Plan Problem List: (1) Pre-eclampsia in third trimester Assessment and Plan 30 yo G1 at 34w5d with Pre-eclampsia, S/P , BP stable BP remains mildly elevated 140/90s home on [facility] Discharge Planning Plan for tomorrow Reba Nam MD Sep 15, 2016 08:43
[2016-09-15] MEDS ORDERED: NORV2.5T PO (08:44)
[2016-09-16 07:31] LABS: BATH SALTS (MDPV) UR NEG (NEG); ECSTASY (MDMA) UR NEG (NEG); HEROIN (6-ACETYLMORPHINE) UR NEG (NEG); K2 SPICE UR NEG (NEG); OBMETHADONE UR NEG (NEG); OXYCODONE (PERCODAN) NEG (NEG); PHENCYCLIDINE URINE NEG (NEG)
== END 2016-09-15 12:00 | disposition home or self-care (01) | DRG 775 ==
LOC: HOBED 15:38 → H2EA 17:32 → OBSVTOIN 17:32 → INTOOBSV 17:32 → H2EB 09-11 10:36 → H2EA 09-12 17:34 → H1EA 09-13 14:16
PROVIDERS: ADMIT Obstetrics & Gynecology; ATTEND Obstetrics & Gynecology
PROC: 10E0XZZ Delivery of Products of Conception, External Approach (ICD-10-PCS; principal; 2016-09-12)
PROC: 0KQM0ZZ Repair Perineum Muscle, Open Approach (ICD-10-PCS; 2016-09-12)
PROC: 00HU33Z Insertion of Infusion Device into Spinal Canal, Percutaneous Approach (ICD-10-PCS; 2016-09-12)
PROC: 3E0R3CZ (ICD-10-PCS; 2016-09-12)
PROC: 10907ZC Drainage of Amniotic Fluid, Therapeutic from Products of Conception, Via Natural or Artificial Opening (ICD-10-PCS; 2016-09-13)
DX: O14.14 Severe pre-eclampsia complicating childbirth (principal); H53.8 Other visual disturbances; Z37.0 Single live birth; O70.0 First degree perineal laceration during delivery; Z3A.35 35 weeks gestation of pregnancy
CPT/HCPCS: 59025; 71020; 80048; 80053; 80076; 80307; 81001; 83735; 84450; 84460; 84550; 85025; 85027; 86900; 86901; 87081; 87150; 99284; G0481; J0702; J2590; J3010; J3475; J7120

== ENCOUNTER → 2017-06-03 | Outpatient (CLI) | payer OTHER ==
[~2017-06-03] MED LIST: NORV2.5T PO; TRICTAB PO
== END ==
LOC: HPND 10:56
PROVIDERS: ATTEND Obstetrics & Gynecology
DX: O26.892 Other specified pregnancy related conditions, second trimester (principal); O09.292 Supervision of pregnancy with other poor reproductive or obstetric history, second trimester; O35.2XX0 Maternal care for (suspected) hereditary disease in fetus, not applicable or unspecified
CPT/HCPCS: 76811

== ENCOUNTER 2017-07-01 15:29 | Emergency (ER) | payer OTHER ==
--- NOTE | 2017-07-01 16:41 | PD ---
HPI Chief Complaint Patient sent over for amnio sure evaluation to be sure she is not leaking amniotic fluid Date Seen: Jul 01, 2017 Time Seen: 16:35 Travel History International Travel<30 Days: No Contact w/Intl Traveler<30Days: No Known Affected Area: No History of Present Illness HPI Patient is 31-year-old white female at [address] Carrington for care. Patient's second OB diagnostic today and they recognize that low normal amniotic fluid volume so they sent over to OB ED to check an amnio sure to make sure she is not leaking AF the test is negative Weeks Gestation: 22 Para: 1 : 2 History Obstetric History Obstetric History Delivered vaginally first baby was preeclamptic with and delivered a little early Social History Alcohol Use: No Tobacco Use: No Substance Abuse: No Allergies-Medications (Allergen,Severity, Reaction): Coded Allergies: Sulfa (Sulfonamide Antibiotics) (Unverified Allergy, Severe, unknown, 03/10) penicillin G (Unverified Allergy, Severe, anaphylaxis, 03/10/17) Home Meds Active Scripts Amlodipine (Norvasc) 2.5 Mg Tab, 2.5 MG PO DAILY for Blood Pressure Management, #30 TAB 0 Refills Prov:Reba Nam MD 09/15/16 Reported Medications Vit-Ferrous Fumarate () 1 Tab Tab, 1 TAB PO DAILY for Nutritional Supplement, #30 TAB 0 Refills 09/11/16 Review of Systems General / Constitutional: No: Fever, Weight Gain, Chills, Other Eyes: No: Diploplia, Blurred Vision, Visual changes, Pain, Photophobia HENT: No: Headaches, Vertigo, Lightheadedness Cardiovascular: No: Irregular Rhythm, Chest Pain or Discomfort, Palpitations, Tachycardia, Syncope, Varicosities, Edema, Cyanosis Respiratory: No: Cough, Short of Breath, Other Gastrointestinal: No: Nausea, Vomiting, Diarrhea Genitourinary: No: Decreased Urinary Output, Oliguria Musculoskeletal: No: Limited ROM, Weakness, Cramping, Edema, Pain Skin: No Rash, No Itching, No Dryness, No Lumps, No Change in Pigmentation, No Change in Nails, No Alopecia, No Lesions Neurologic: No: Weakness, Dizziness, Syncope, Focal Abnormalities, Coordination Problem, Headache, Slurred Speech, Seizures Psychiatric: No: Depression, Suicidal Ideations, Homicidal Ideation Endocrine: No: Heat Intolerance, Cold Intolerance, Polydipsia, Polyuria, Other Physical Exam Narrative GENERAL: Well-nourished, well-developed patient. SKIN: Warm and dry. HEAD: Normocephalic and atraumatic. EYES: No scleral icterus. No injection or drainage. ENT: No nasal drainage noted. Mucous membranes pink. Airway patent. NECK: Supple, trachea midline. No JVD. CARDIOVASCULAR: Regular rate and rhythm without murmurs, gallops, or rubs. RESPIRATORY: Breath sounds equal bilaterally. No accessory muscle use. BREASTS: Bilateral exam showed no masses , no retractions, no nipple discharge. ABDOMEN/GI: Abdomen soft, non-tender, bowel sounds present, no rebound, no guarding Gravid to [-22] weeks size Fundal Height: [-at umb] GENITOURINARY: amnisure negative FHT's: 140s EXTREMITIES: No cyanosis or edema. BACK: Nontender without obvious deformity. No CVA tenderness. NEUROLOGICAL: Awake and alert. Motor and sensory grossly within normal limits. Five out of 5 muscle strength in all muscle groups. Normal speech. Data Data Labs amnisure negative MDM Interpretation(s) Patient is 31-year-old white female at [address] Carrington for care and sent over from OB diagnostics because they saw a low normal amniotic fluid volume at 22 weeks. All other anatomy within normal limits they identified kidneys and bladder. Amnio sure done on OB ED is negative and the patient denies any leakage of fluid per vagina Plan Plan for the patient to follow-up with Dr. Carrington for visits and serial ultrasounds to watch amniotic fluid volume Diagnosis Diagnosis: Primary Impression: Follow-up for low amniotic fluid volume, Additional Impression: 22 weeks gestation of Disposition: DISCHARGE HOME Condition: Stable Darin Recio II, MD Jul 01, 2017 16:41
== END 2017-07-01 17:00 | disposition home or self-care (01) ==
LOC: HOBED 15:29
DX: O26.892 Other specified pregnancy related conditions, second trimester (principal); Z3A.22 22 weeks gestation of pregnancy
CPT/HCPCS: 84112; 99283

== ENCOUNTER → 2017-07-01 | Outpatient (CLI) | payer OTHER | LOC: HPND 10:48 | PROVIDERS: ATTEND Obstetrics & Gynecology | DX: O35.2XX0 Maternal care for (suspected) hereditary disease in fetus, not applicable or unspecified (principal); O09.292 Supervision of pregnancy with other poor reproductive or obstetric history, second trimester | CPT/HCPCS: 76816 ==

== ENCOUNTER → 2017-07-29 | Outpatient (CLI) | payer SELFPAY | LOC: HPND 07:51 | PROVIDERS: ATTEND Obstetrics & Gynecology | DX: O35.2XX0 Maternal care for (suspected) hereditary disease in fetus, not applicable or unspecified (principal); O09.292 Supervision of pregnancy with other poor reproductive or obstetric history, second trimester | CPT/HCPCS: 76816; 76825; 76827; 93325 ==

== ENCOUNTER 2017-08-20 15:55 | Emergency (ER) | payer OTHER ==
--- NOTE | 2017-08-20 17:04 | PD ---
HPI Chief Complaint Leaking fluid per vagina Date Seen: Aug 20, 2017 Time Seen: 16:44 Travel History International Travel<30 Days: No Contact w/Intl Traveler<30Days: No Known Affected Area: No History of Present Illness HPI Patient is 31-year-old white female at 2930 weeks presents complaining of a gush of fluid per vagina when she recently had a pickup a toddler. She had no real leakage since. She thought it was a urine leak but she wanted be sure so she came here to be checked in the for possible amniotic fluid leak, heart tracing is reactive and no contractions. Amnio sure done here is negative Weeks Gestation: 29 Para: 1 : 2 History Obstetric History Obstetric History One vaginal delivery Social History Alcohol Use: No Tobacco Use: No Substance Abuse: No Allergies-Medications (Allergen,Severity, Reaction): Coded Allergies: Sulfa (Sulfonamide Antibiotics) (Unverified Allergy, Severe, unknown, 03/10) penicillin G (Unverified Allergy, Severe, anaphylaxis, 03/10/17) Home Meds Active Scripts Amlodipine (Norvasc) 2.5 Mg Tab, 2.5 MG PO DAILY for Blood Pressure Management, #30 TAB 0 Refills Prov:Reba Nam MD 09/15/16 Reported Medications Vit-Ferrous Fumarate () 1 Tab Tab, 1 TAB PO DAILY for Nutritional Supplement, #30 TAB 0 Refills 09/11/16 Review of Systems General / Constitutional: No: Fever, Weight Gain, Chills, Other Eyes: No: Diploplia, Blurred Vision, Visual changes, Pain, Photophobia HENT: No: Headaches, Vertigo, Lightheadedness Cardiovascular: No: Irregular Rhythm, Chest Pain or Discomfort, Palpitations, Tachycardia, Syncope, Varicosities, Edema, Cyanosis Respiratory: No: Cough, Short of Breath, Other Gastrointestinal: No: Nausea, Vomiting, Diarrhea Genitourinary: No: Decreased Urinary Output, Oliguria Musculoskeletal: No: Limited ROM, Weakness, Cramping, Edema, Pain Skin: No Rash, No Itching, No Dryness, No Lumps, No Change in Pigmentation, No Change in Nails, No Alopecia, No Lesions Neurologic: No: Weakness, Dizziness, Syncope, Focal Abnormalities, Coordination Problem, Headache, Slurred Speech, Seizures Psychiatric: No: Depression, Suicidal Ideations, Homicidal Ideation Endocrine: No: Heat Intolerance, Cold Intolerance, Polydipsia, Polyuria, Other Physical Exam Narrative GENERAL: Well-nourished, well-developed patient. SKIN: Warm and dry. HEAD: Normocephalic and atraumatic. EYES: No scleral icterus. No injection or drainage. ENT: No nasal drainage noted. Mucous membranes pink. Airway patent. NECK: Supple, trachea midline. No JVD. CARDIOVASCULAR: Regular rate and rhythm without murmurs, gallops, or rubs. RESPIRATORY: Breath sounds equal bilaterally. No accessory muscle use. BREASTS: Bilateral exam showed no masses , no retractions, no nipple discharge. ABDOMEN/GI: Abdomen soft, non-tender, bowel sounds present, no rebound, no guarding Gravid to [29-] weeks size Fundal Height: [29-] GENITOURINARY: Membranes: [intact amnisure neg] Uterine Contractions: [-none] FHT's: Category: [1-] Baseline: [-133] Reactive: [R-] Variability: [none-] Decels: [none-] EXTREMITIES: No cyanosis or edema. BACK: Nontender without obvious deformity. No CVA tenderness. NEUROLOGICAL: Awake and alert. Motor and sensory grossly within normal limits. Five out of 5 muscle strength in all muscle groups. Normal speech. Data Data Labs amnisure negative MDM Interpretation(s) 31-year-old white female [address] Carrington for care presents complaining of a gush of fluid per vagina today when she decreased and a pickup a toddler strained. She believes it was urine but she wanted, make sure. Premature is negative she's had no further leakage. heart rate tracing is reactive and no contractions. Patient's amnio sure is negative today on OB ED Plan Plan to discharge patient home to observation follow-up with her OB provider Diagnosis Diagnosis: Primary Impression: No leakage of amniotic fluid into vagina Additional Impression: 29 weeks gestation of Disposition: 01 DISCHARGE HOME Condition: Stable Darin Recio II, MD Aug 20, 2017 17:04
== END 2017-08-20 17:25 | disposition home or self-care (01) ==
LOC: HOBED 15:55
DX: O26.93 Pregnancy related conditions, unspecified, third trimester (principal); Z3A.29 29 weeks gestation of pregnancy; Z88.2 Allergy status to sulfonamides; Z88.0 Allergy status to penicillin
CPT/HCPCS: 84112; 99284

== ENCOUNTER → 2017-08-31 | Outpatient (CLI) | payer OTHER ==
[~2017-08-31] MED LIST changes: +ASPI-516 CHEW; +CALCCHW25 CHEW; +FISHCAP4 PO
== END ==
LOC: HPND 10:40
PROVIDERS: ATTEND Obstetrics & Gynecology
DX: O35.2XX0 Maternal care for (suspected) hereditary disease in fetus, not applicable or unspecified (principal); O09.292 Supervision of pregnancy with other poor reproductive or obstetric history, second trimester
CPT/HCPCS: 76816; 76818; 76820; 76821

== ENCOUNTER 2017-09-01 18:29 | Observation (INO) | payer OTHER ==
[~2017-09-01] VITALS: Ht 170.2 cm; Wt 104.0 kg
[~2017-09-01 18:29] MED LIST changes: -ASPI-516 CHEW; -CALCCHW25 CHEW; -FISHCAP4 PO
--- NOTE | 2017-09-01 19:34 | PD ---
HPI Chief Complaint Decreased movement Travel History International Travel<30 Days: No Contact w/Intl Traveler<30Days: No Known Affected Area: No History of Present Illness HPI 31-year-old 101, IUP at 31.4 care complicated by: IUGR, borderline oligohydramnios, MTHFR heterozygote, fetus with Ehrlos Danlos III syndrome, history of preeclampsia, history of delivery at 34 weeks, close spacing The patient presents complaining of decreased movement today. The last she recalls feeling normal movement was at 8 AM today. She reports that normally she feels good movements however has felt only intermittent movements throughout the day. She tried kick counts after eating a snack and drinking a large glass of cold root beer without improvement in movements. She denies any aggravating or alleviating factors. She denies any vaginal bleeding. She denies any headache, visual changes, or right upper quadrant/epigastric pain. She denies any painful contractions or cramping. She denies any leaking of fluid. Weeks Gestation: 31 Para: 1 : 2 History Obstetric History Obstetric History delivery at 34 weeks for preeclampsia Past Surgical History Narrative Surgical Tonsillectomy Polypectomy Breast augmentation Family History Narrative Family History HTN CAD [place] Social History Alcohol Use: No Tobacco Use: No Substance Abuse: No Allergies-Medications (Allergen,Severity, Reaction): Coded Allergies: Sulfa (Sulfonamide Antibiotics) (Unverified Allergy, Severe, unknown, 03/10) penicillin G (Unverified Allergy, Severe, anaphylaxis, 03/10/17) Home Meds Reported Medications Calcium-Vitamins D & K (Calcium + D & K) 500-1,000-40 Mg-Unit-Mcg Chew, 1 TAB CHEW for Nutritional Supplement, TAB 0 Refills 09/01/17 Fish Oil-Cholecalciferol (Fish Oil + D3) 1,200-1,000 Mg-Unit Cap, 1 CAP PO DAILY for Nutritional Supplement, #30 CAP 0 Refills 09/01/17 Aspirin (Aspirin) 81 Mg Chew, 81 MG CHEW DAILY, TAB 0 Refills 09/01/17 Vit-Ferrous Fumarate () 1 Tab Tab, 1 TAB PO DAILY for Nutritional Supplement, #30 TAB 0 Refills 09/11/16 Discontinued Scripts Amlodipine (Norvasc) 2.5 Mg Tab, 2.5 MG PO DAILY for Blood Pressure Management, #30 TAB 0 Refills Prov:Reba Nam MD 09/15/16 Review of Systems Except as stated in HPI: all other systems reviewed are Neg Physical Exam Narrative GENERAL: Well-nourished, well-developed patient. SKIN: Warm and dry. HEAD: Normocephalic and atraumatic. EYES: No scleral icterus. No injection or drainage. ENT: No nasal drainage noted. Mucous membranes pink. Airway patent. NECK: Supple, trachea midline. No JVD. CARDIOVASCULAR: Regular rate and rhythm without murmurs, gallops, or rubs. RESPIRATORY: Breath sounds equal bilaterally. No accessory muscle use. BREASTS: ABDOMEN/GI: Abdomen soft, non-tender, bowel sounds present, no rebound, no guarding Gravid GENITOURINARY: Deferred Uterine Contractions: None FHT's: 130s with moderate long-term variability, good accelerations, no decelerations noted EXTREMITIES: No cyanosis or edema. BACK: Nontender without obvious deformity. NEUROLOGICAL: Awake and alert. Motor and sensory grossly within normal limits. Normal speech. Musculoskeletal: Grossly normal range of motion, gait, muscle strength Psychiatric: Grossly normal memory and affect Data Data Orders Orders Hold Clot (09/01/17 19:28) MDM Plan Assessment/plan: 1. IUP at 31.4 2. Decreased movement: heart rate is reassuring and appropriate for gestational age however patient still feels rare movement and movements are intermittently detected on monitor. Discussed with Dr. Nam , will admit for continuous monitoring overnight and further observation and follow-up with official biophysical profile in the morning. Discussed with patient that in the unlikely event she needed to be delivered tonight, I would intervene on behalf of Dr. Nam until she was present. We discussed that should emergent delivery be indicated tonight would be performed although unlikely. We discussed the risks, benefits, and alternatives. We discussed the risks that include but are not limited to pain, infection, bleeding, injury to other things like the bladder/bowel/nerves/vessels, injury to the baby, rare need for hysterectomy or repeat operation, risk of blood transfusion, wound infection/breakdown and other possible risks. The patient is aware that it is unlikely delivery will be indicated but if so she is in agreement with intervention should that be necessary. 3. IUGR: We'll order repeat ultrasound in a.m. 4. Borderline oligohydramnios: A bedside ultrasound performed tonight revealed an STEVEN of 8.4 5. MTHFR heterozygote 6. Anna Danlos III syndrome 7. Close spacing 8. History of preeclampsia with delivery at 34 weeks: Mildly elevated blood pressures tonight with preeclampsia labs performed. Protein creatinine ratio 0.17 and other preeclampsia labs are normal. The patient is currently undergoing collection of a 24-hour urine. The patient had a family member bring her 24-hour urine. Only a very small amount of urine was sent for urinalysis and PC ratio, per RN approximately 5-10 cc. The remainder of the urine was placed in the 24-hour urine collection.. Cleo Rodriguez MD Sep 01, 2017 19:34
[2017-09-01 21:04] LABS: HEMATOCRIT 38.5 % (35.0-46.0); MEAN CELL VOLUME 83.5 FL (80.0-100.0); MEAN CORPUSCULAR HEMOGLOBIN 28.2 PG (27.0-34.0); MEAN CORPUSCULAR HGB CONC 33.7 % (32.0-36.0); MEAN PLATELET VOLUME 8.7 FL (7.0-11.0); PLATELET COUNT 328 TH/MM3 (150-450); RED CELL DISTRIBUTION WIDTH 13.5 % (11.6-17.2)
[2017-09-01] MEDS ORDERED: ONDANSETRON HCL 4 MG/2 ML VIAL IV PUSH PRN (21:15)
[2017-09-01] MEDS ORDERED: ACETAMINOPHEN 325 MG TAB PO PRN (21:15)
[2017-09-01] MEDS ORDERED: ONDANSETRON ODT 4 MG TAB PO PRN (21:15)
[2017-09-01] MEDS ORDERED: SODIUM CHLORIDE 0.9% FLUSH 10 ML FLUSH IV FLUSH PRN (21:15)
[2017-09-01] MEDS ORDERED: ALUMINUM/MAGNESIUM/SIMETH 30 ML CUP PO PRN (21:15)
[2017-09-01] MEDS ORDERED: ZOLPIDEM TARTRATE 5 MG TAB PO PRN (21:15)
[2017-09-01 21:16] LABS: BACTERIA, URINE MOD /hpf; BILIRUBIN, URINE NEG (NEG); BLOOD, URINE NEG (NEG); GLUCOSE,URINE NEG (NEG); KETONE, URINE NEG (NEG); MUCUS URINE FEW /lpf (OCC); NITRITE,URINE NEG (NEG); PH, URINE 6.5 (5.0-8.5); SQUAMOUS EPITHELIAL CELL URINE 3 /hpf (0-5); URINE COLOR YELLOW (YELLW/STRAW); URINE LEUKOCYTE ESTERASE TRACE (NEG)
[2017-09-01 21:25] LABS: ALBUMIN 2.8 GM/DL (3.4-5.0); AST (GOT) 14 U/L (15-37); BLOOD UREA NITROGEN 15 MG/DL (7-18); CALCIUM 9.2 MG/DL (8.5-10.1); CHLORIDE 104 MEQ/L (98-107); CREATININE 0.84 MG/DL (0.50-1.00); GLOMERULAR FILTRATION RATE 80 ML/MIN (>89); GLUCOSE,RANDOM 113 MG/DL (74-106); SODIUM (NA) 138 MEQ/L (136-145)
[2017-09-01 21:26] LABS: ALT (GPT) 25 U/L (10-53)
[2017-09-01 21:28] LABS: ALKALINE PHOSPHATASE 98 U/L (45-117); TOTAL BILIRUBIN ADULT 0.1 MG/DL (0.2-1.0); TOTAL PROTEIN 7.4 GM/DL (6.4-8.2)
[2017-09-01] MEDS ORDERED: ASPI-516 CHEW (21:34)
[2017-09-01] MEDS ORDERED: FISHCAP4 PO (21:34)
[2017-09-01] MEDS ORDERED: CALCCHW25 CHEW (21:35)
[2017-09-01 22:15] VITALS: BP 108/66; PULSE 90
[2017-09-01 22:16] VITALS: RESP 18; TEMP 98
[2017-09-01 23:51] VITALS: BP 103/59; PULSE 88; RESP 18
--- NOTE | 2017-09-02 01:24 | HHI.PR ---
Subjective Remarks NST report, limited bedside US report from 09/01/17 Indications: IUP at 31.4, IUGR, borderline oligohydramnios, MTHFR, maternal Anna Danlos syndrome, history of preeclampsia with delivery, close spacing, decreased movement NST with heart rate baseline in the 130s, moderate long-term variability, accelerations noted no decelerations noted. Overall this is category 1 heart tracing and a reactive NST however very little movement is detected A limited bedside ultrasound was performed with fluid measured and 3 pockets 2.89, 3.88, 1.60 for a total STEVEN of 8.4, some movement was noted Follow-up: Follow-up with continued monitoring Final diagnosis:IUP at 31.4, IUGR, borderline oligohydramnios, MTHFR, maternal Anna Danlos syndrome, history of preeclampsia with delivery, close spacing, decreased movement but with reassuring heart rate testing Objective Vital Signs Date Time Temp Pulse Resp B/P (MAP) Pulse Ox O2 Delivery O2 Flow Rate FiO2 09/01/17 23:51 88 18 103/59 (74) 09/01/17 22:16 98.0 18 09/01/17 22:15 90 108/66 (80) Result Diagram: 09/01/17191809/01/171918 Cleo Rodriguez MD Sep 02, 2017 01:24
[2017-09-02 03:05] VITALS: BP 113/58; PULSE 97; RESP 18; TEMP 97.9
[2017-09-02 07:21] VITALS: BP 120/74; PULSE 87
[2017-09-02 07:22] VITALS: RESP 16; TEMP 98.7
--- NOTE | 2017-09-02 08:13 | PD.OB.ANTE ---
Subjective Diagnosis: (1) Decreased movement Diagnosis: Principal (2) state, incidental Diagnosis: Secondary Interval History feels baby moving better today, no ctx, no LOF, no VB Objective Vital Signs Vital Signs Date Time Temp Pulse Resp B/P (MAP) Pulse Ox O2 Delivery O2 Flow Rate FiO2 09/02/17 07:22 98.7 16 09/02/17 07:21 87 120/74 (89) 09/02/17 03:05 97.9 18 09/02/17 03:05 97 113/58 (76) 09/01/17 23:51 88 18 103/59 (74) 09/01/17 22:16 98.0 18 09/01/17 22:15 90 108/66 (80) Lab & Micro Results Test 09/01/17 19:19 White Blood Count 20.0 TH/MM3 Red Blood Count 4.60 MIL/MM3 Hemoglobin 13.0 GM/DL Hematocrit 38.5 % Mean Corpuscular Volume 83.5 FL Mean Corpuscular Hemoglobin 28.2 PG Mean Corpuscular Hemoglobin Concent 33.7 % Red Cell Distribution Width 13.5 % Platelet Count 328 TH/MM3 Mean Platelet Volume 8.7 FL Urine Color YELLOW Urine Turbidity HAZY Urine pH 6.5 Urine Specific [place] 1.020 Urine Protein TRACE mg/dL Urine Glucose (UA) NEG mg/dL Urine Ketones NEG mg/dL Urine Occult Blood NEG Urine Nitrite NEG Urine Bilirubin NEG Urine Urobilinogen LESS THAN 2.0 MG/DL Urine Leukocyte Esterase TRACE Urine RBC 1 /hpf Urine WBC 1 /hpf Urine Squamous Epithelial Cells 3 /hpf Urine Bacteria MOD /hpf Urine Mucus FEW /lpf Microscopic Urinalysis Comment CULTURE INDICATED Urine Random Creatinine 116 MG/DL Urine Random Total Protein 20 MG/DL Urine Protein/Creatinine Ratio 0.17 Blood Urea Nitrogen 15 MG/DL Creatinine 0.84 MG/DL Random Glucose 113 MG/DL Total Protein 7.4 GM/DL Albumin 2.8 GM/DL Calcium Level 9.2 MG/DL Uric Acid 3.7 MG/DL Alkaline Phosphatase 98 U/L Aspartate Amino Transf (AST/SGOT) 14 U/L Alanine Aminotransferase (ALT/SGPT) 25 U/L Total Bilirubin 0.1 MG/DL Sodium Level 138 MEQ/L Potassium Level 3.9 MEQ/L Chloride Level 104 MEQ/L Carbon Dioxide Level 26.0 MEQ/L Anion Gap 8 MEQ/L Estimat Glomerular Filtration Rate 80 ML/MIN Date/Time Source Procedure Growth Status 09/01/17 19:19 Urine Clean Catch Urine Culture Pending Received Physical Exam GENERAL: Well-nourished, well-developed patient. CARDIOVASCULAR: Regular rate and rhythm without murmurs, gallops, or rubs. RESPIRATORY: Breath sounds equal bilaterally. No accessory muscle use. ABDOMEN/GI: Abdomen soft, non-tender. Fundus: [-] GENITOURINARY: External Genitalia: intact and normal in appearance Cervix: [-] deferred Dilatation: [-] Effacement: [-] Station: [-] Presentation: [-] Membranes: [-] Uterine Contractions: [-] FHT's: Category: [-] 1 Baseline: [-] Reactive: [-] Variability: [-] good Decels: [-] EXTREMITIES: No cyanosis or edema, non-tender, without signs of DVT. Assessment and Plan Problem List: (1) state, incidental ICD Codes: Z33.1 - state, incidental (2) Decreased movement ICD Codes: O36.8190 - Decreased movements, unspecified trimester, not applicable or unspecified Assessment and Plan IUP at 31+ wks, h/o pre-eclampsia last , IUGR this , borderline oligo, Anna Danlos for US today, got celestone in office thursday which may have precipitated decreased FM on thursday bedrest, baby asa, calcium supp Luaren Carrington MD Sep 02, 2017 08:13
[2017-09-02] MEDS ORDERED: FERROUS SULFATE 325 MG (65 MG ELEMENTAL IRON) TAB PO SCH (09:00)
[2017-09-02] MEDS ORDERED: MULTIVIT/MIN/PREN/FOL AC/IRON PRENATAL TAB PO SCH (09:00)
[2017-09-02] MEDS ORDERED: DOCUSATE SODIUM 100 MG CAP PO SCH (09:00)
[2017-09-02] MEDS ORDERED: SODIUM CHLORIDE 0.9% FLUSH 10 ML FLUSH IV FLUSH SCH (09:00)
[2017-09-02 13:06] VITALS: BP 117/72; PULSE 88
== END 2017-09-02 13:48 | disposition home or self-care (01) ==
LOC: HOBED 18:29 → H2EA 21:11
PROVIDERS: ADMIT Obstetrics & Gynecology; ATTEND Obstetrics & Gynecology
DX: O36.8130 Decreased fetal movements, third trimester, not applicable or unspecified (principal); O41.03X0 Oligohydramnios, third trimester, not applicable or unspecified; Q79.6 Ehlers-Danlos syndromes; Z3A.31 31 weeks gestation of pregnancy; R82.99 Other abnormal findings in urine
CPT/HCPCS: 36415; 76815; 76819; 76820; 76821; 80053; 81001; 82570; 84156; 84157; 84550; 85027; 87086; 99285; G0378

== ENCOUNTER 2017-09-13 11:02 | Emergency (ER) | payer OTHER ==
[~2017-09-13 11:02] MED LIST changes: +ASPI-516 CHEW; +CALCCHW25 CHEW; +FISHCAP4 PO; -NORV2.5T PO
[2017-09-13 12:55] LABS: AUTOMATED NEUTROPHIL # 10.7 TH/MM3 (1.8-7.7); BASOPHIL # 0.1 TH/MM3 (0-0.2); BASOPHIL % 0.4 % (0.0-2.0); EOSINOPHIL # 0.2 TH/MM3 (0-0.4); EOSINOPHIL % 1.6 % (0.0-4.0); HEMATOCRIT 37.3 % (35.0-46.0); HEMOGLOBIN 12.7 GM/DL (11.6-15.3); LYMPH % 15.1 % (9.0-44.0); LYMPHOCYTE # 2.1 TH/MM3 (1.0-4.8); MEAN CORPUSCULAR HEMOGLOBIN 28.4 PG (27.0-34.0); MEAN CORPUSCULAR HGB CONC 34.2 % (32.0-36.0); MEAN PLATELET VOLUME 8.9 FL (7.0-11.0); MONO % 6.8 % (0.0-8.0); NEUT % 76.1 % (16.0-70.0); PLATELET COUNT 310 TH/MM3 (150-450); RED BLOOD COUNT 4.49 MIL/MM3 (4.00-5.30); RED CELL DISTRIBUTION WIDTH 13.6 % (11.6-17.2)
[2017-09-13 13:06] LABS: ALBUMIN 2.5 GM/DL (3.4-5.0); ALT (GPT) 24 U/L (10-53); AST (GOT) 15 U/L (15-37); DIRECT BILIRUBIN ADULT LESS THAN 0.1 MG/DL (0.0-0.2)
[2017-09-13 13:07] LABS: ALKALINE PHOSPHATASE 109 U/L (45-117); TOTAL BILIRUBIN ADULT 0.1 MG/DL (0.2-1.0); TOTAL PROTEIN 6.8 GM/DL (6.4-8.2)
[2017-09-13 13:14] LABS: BILIRUBIN, URINE NEG (NEG); BLOOD, URINE NEG (NEG); GLUCOSE,URINE NEG (NEG); KETONE, URINE NEG (NEG); MUCUS URINE FEW /lpf (OCC); NITRITE,URINE NEG (NEG); PH, URINE 7.5 (5.0-8.5); SQUAMOUS EPITHELIAL CELL URINE 1 /hpf (0-5); URINE COLOR YELLOW (YELLW/STRAW); URINE LEUKOCYTE ESTERASE SMALL (NEG)
--- NOTE | 2017-09-13 13:39 | PD ---
HPI Chief Complaint scheduled labs Date Seen: Sep 13, 2017 Time Seen: 13:35 Travel History International Travel<30 Days: No Contact w/Intl Traveler<30Days: No Known Affected Area: No History of Present Illness HPI 31y/o @ 33.2wks. She has PNC with HOGA. Pt has a h/o preE with delivery at 34wks. She has borderline IUGR/oligo this and was seen Thursday in clinic and given an Rx for labs today. She has no complaints. She denies LOF, VB, ctx. +FM. She is taking ASA qday. Weeks Gestation: 33 Para: 1 : 2 History Past Medical History Medical History: Denies Significant Hx Obstetric History Obstetric History 1. @ 34wks, IOL preE 2. current, on ASA Family History Family History: Negative Social History Alcohol Use: No Tobacco Use: No Substance Abuse: No Allergies-Medications (Allergen,Severity, Reaction): Coded Allergies: Sulfa (Sulfonamide Antibiotics) (Unverified Allergy, Severe, unknown, 03/10) penicillin G (Unverified Allergy, Severe, anaphylaxis, 03/10/17) Home Meds Reported Medications Calcium-Vitamins D & K (Calcium + D & K) 500-1,000-40 Mg-Unit-Mcg Chew, 1 TAB CHEW for Nutritional Supplement, TAB 0 Refills 09/01/17 Fish Oil-Cholecalciferol (Fish Oil + D3) 1,200-1,000 Mg-Unit Cap, 1 CAP PO DAILY for Nutritional Supplement, #30 CAP 0 Refills 09/01/17 Aspirin (Aspirin) 81 Mg Chew, 81 MG CHEW DAILY, TAB 0 Refills 09/01/17 Vit-Ferrous Fumarate () 1 Tab Tab, 1 TAB PO DAILY for Nutritional Supplement, #30 TAB 0 Refills 09/11/16 Review of Systems Except as stated in HPI: all other systems reviewed are Neg Physical Exam Narrative General: well developed, well nourished, no acute distress HEENT: normocephalic atraumatic, extraocular movements intact, neck supple Abdomen: soft, gravid, nontender, nondistended Uterus: fundus above umbilicus Extremities: full range of motion Skin: normal coloration, no rashes, no suspicious skin lesions noted Neurologic: cranial nerves 2-12 grossly intact, normal muscle tone, normal gait Psychiatric: normal mood and affect, appropriate FHTs: 130s, +accels, occasional variable (age appropriate), moderate variability, reactive Boles: quiet Data Data Vital Signs Reviewed: Yes Orders Orders ^ Non Stress Test (09/13/17 12:23) Hepatic Functional Panel (09/13/17 12:23) Complete Blood Count With Diff (09/13/17 12:23) Uric Acid (09/13/17 12:23) Urinalysis - C+S If Indicated (09/13/17 12:23) Protein Creat Ratio, Random Ur (09/13/17 12:23) Vital Signs (Adult) .ON ADMISSION (09/13/17 13:35) ^ Labor Status (09/13/17 13:35) ^ Non Stress Test (09/13/17 13:35) Ed Discharge Order (09/13/17 13:35) Labs Laboratory Tests Test 09/13/17 11:35 White Blood Count 14.0 Red Blood Count 4.49 Hemoglobin 12.7 Hematocrit 37.3 Mean Corpuscular Volume 83.0 Mean Corpuscular Hemoglobin 28.4 Mean Corpuscular Hemoglobin Concent 34.2 Red Cell Distribution Width 13.6 Platelet Count 310 Mean Platelet Volume 8.9 Neutrophils (%) (Auto) 76.1 Lymphocytes (%) (Auto) 15.1 Monocytes (%) (Auto) 6.8 Eosinophils (%) (Auto) 1.6 Basophils (%) (Auto) 0.4 Neutrophils # (Auto) 10.7 Lymphocytes # (Auto) 2.1 Monocytes # (Auto) 1.0 Eosinophils # (Auto) 0.2 Basophils # (Auto) 0.1 CBC Comment DIFF FINAL Differential Comment Urine Color YELLOW Urine Turbidity CLEAR Urine pH 7.5 Urine Specific [place] 1.017 Urine Protein NEG Urine Glucose (UA) NEG Urine Ketones NEG Urine Occult Blood NEG Urine Nitrite NEG Urine Bilirubin NEG Urine Urobilinogen LESS THAN 2.0 Urine Leukocyte Esterase SMALL Urine RBC LESS THAN 1 Urine WBC 1 Urine Squamous Epithelial Cells 1 Urine Mucus FEW Microscopic Urinalysis Comment CULT NOT INDICATED Urine Random Creatinine 101 Urine Random Total Protein 16 Urine Protein/Creatinine Ratio 0.16 Uric Acid 4.4 Total Bilirubin 0.1 Direct Bilirubin LESS THAN 0.1 Indirect Bilirubin 0.0 Aspartate Amino Transf (AST/SGOT) 15 Alanine Aminotransferase (ALT/SGPT) 24 Alkaline Phosphatase 109 Total Protein 6.8 Albumin 2.5 MDM Plan 31y/o @ 33.2wks with h/o preE. -- BPs normotensive -- PIH labs normal (Pr:C 0.16) -- no complaints Dispo: stable for d/c home with precautions Diagnosis Diagnosis: Primary Impression: 33 weeks gestation of Additional Impression: History of pre-eclampsia in prior , currently in third trimester Ankit Reeder MD Sep 13, 2017 13:39
== END 2017-09-13 13:53 | disposition home or self-care (01) ==
LOC: HOBED 11:02
DX: O26.893 Other specified pregnancy related conditions, third trimester (principal); Z3A.33 33 weeks gestation of pregnancy
CPT/HCPCS: 36415; 59025; 80076; 81001; 82570; 84156; 84550; 85025

== ENCOUNTER 2017-09-15 10:31 | Observation (INO) | payer OTHER ==
[~2017-09-15] VITALS: Ht 170.2 cm; Wt 98.0 kg
[2017-09-15] VITALS (14 sets, daily range): BP systolic 110–138; BP diastolic 64–92; PULSE 85–102; RESP 16–18; TEMP 97.6–98.4
--- NOTE | 2017-09-15 10:46 | PD ---
HPI Travel History International Travel<30 Days: No Contact w/Intl Traveler<30Days: No Known Affected Area: No History of Present Illness HPI 31-year-old 101, IUP at 33.4 care complicated by: IUGR, borderline oligohydramnios, MTHFR heterozygote, maternal Ehrlos Danlos III syndrome, history of preeclampsia, history of delivery at 34 weeks, close spacing The patient presents from [facility] with elevated BP. U/S today with STEVEN 6.4 and reported BPP 03/03. She was seen here 09/13/17 with normal labs including PC ratio of 0.16, but has a 24h urine from 09/02/17 of 415. She received betamethasone on 08/28/17 and 08/31/17. She denies any vaginal bleeding. She denies any headache, visual changes, or right upper quadrant/epigastric pain. She denies any painful contractions or cramping. She denies any leaking of fluid. She reports good movements. Weeks Gestation: 33 Para: 1 : 2 History Past Medical History Narrative Medical MTHFR heterozygote Ehrlos Danlos III syndrome history of preeclampsia Obstetric History Obstetric History PTD x1 at 34w Past Surgical History Narrative Surgical Tonsillectomy Polypectomy (sinus) Breast augmentation Family History Narrative Family History HTN CAD [place] Social History Alcohol Use: No Tobacco Use: No Substance Abuse: No Allergies-Medications (Allergen,Severity, Reaction): Coded Allergies: Sulfa (Sulfonamide Antibiotics) (Unverified Allergy, Severe, unknown, 03/10) penicillin G (Unverified Allergy, Severe, anaphylaxis, 03/10/17) Home Meds Reported Medications Calcium-Vitamins D & K (Calcium + D & K) 500-1,000-40 Mg-Unit-Mcg Chew, 1 TAB CHEW for Nutritional Supplement, TAB 0 Refills 09/01/17 Fish Oil-Cholecalciferol (Fish Oil + D3) 1,200-1,000 Mg-Unit Cap, 1 CAP PO DAILY for Nutritional Supplement, #30 CAP 0 Refills 09/01/17 Aspirin (Aspirin) 81 Mg Chew, 81 MG CHEW DAILY, TAB 0 Refills 09/01/17 Vit-Ferrous Fumarate () 1 Tab Tab, 1 TAB PO DAILY for Nutritional Supplement, #30 TAB 0 Refills 09/11/16 Review of Systems Except as stated in HPI: all other systems reviewed are Neg Gastrointestinal: No: Nausea, Vomiting, Diarrhea, Abdominal Pain, Hematemesis, Hematochezia, Constipation, Changes in Bowel Habits, Indigestion, Loss of Appetite, Other Neurologic: No: Weakness, Dizziness, Syncope, Focal Abnormalities, Coordination Problem, Headache, Slurred Speech, Seizures, Other Physical Exam Narrative GENERAL: Well-nourished, well-developed patient. SKIN: Warm and dry. HEAD: Normocephalic and atraumatic. EYES: No scleral icterus. No injection or drainage. ENT: No nasal drainage noted. Mucous membranes pink. Airway patent. NECK: Supple, trachea midline. No JVD. CARDIOVASCULAR: Regular rate and rhythm without murmurs, gallops, or rubs. RESPIRATORY: Breath sounds equal bilaterally. No accessory muscle use. BREASTS: Deferred ABDOMEN/GI: Abdomen soft, non-tender, bowel sounds present, no rebound, no guarding Gravid GENITOURINARY: Deferred FHT's: Category: 1 Baseline:150s Reactive: Y Variability:moderate with good accelerations Decels: rare variable EXTREMITIES: No cyanosis or edema. BACK: Nontender without obvious deformity. No CVA tenderness. NEUROLOGICAL: Awake and alert. Motor and sensory grossly within normal limits. Grossly normal muscle strength. Normal speech. DTR 2+, no visible clonus for MD exam PSYCHIATRIC: grossly normal memory and affect MDM Plan 31-year-old 1. IUP at 33.4 2. IUGR 3. Borderline oligohydramnios 4. MTHFR heterozygote 5. Mild preeclampsia: 24h urine on 09/02/17 with 415 mg total protein, patient on bedrest at home, normal labs on 09/13/17, asymptomatic. Normal labs today with overall stable with mildly elevated blood pressures, discussed with Dr. Pacheco Nam, will admit for repeat 24-hour and for further observation. 6. Ehrlos Danlos III syndrome 7. History of preeclampsia 8. History of delivery at 34 weeks, IOL for preeclampsia 9. close spacing 10. wellbeing:Overall reassuring testing with reactive NST, occasional mild variable but appeared to have resolved, will continue prolonged monitoring. Cleo Rodriguez MD Sep 15, 2017 10:46
--- NOTE | 2017-09-15 10:48 | PD ---
History of Present Illness History of Present Illness NST report Indications: IUP at 33.4, IUGR, borderline oligohydramnios, MTHFR heterozygote , fetus with Ehrlos Danlos III syndrome, history of preeclampsia, history of delivery at 34 weeks, close spacing heart rate baseline in the 150s with moderate long-term variability, good accelerations, no repetitive decelerations. There was an occasional mild variable however the patient has a reactive NST. Follow-up: We'll admit to Dr. Dr. Nam for further observation, continue monitoring Final diagnosis: IUP at 33.4, IUGR, borderline oligohydramnios, MTHFR heterozygote, fetus with Ehrlos Danlos III syndrome, history of preeclampsia, history of delivery at 34 weeks, close spacing Cleo Rodriguez MD Sep 15, 2017 10:48
[2017-09-15] MEDS ORDERED: LACTATED RINGER'S 1000 ML INJ 1,000 ML IV SCH (10:59)
[2017-09-15 11:28] LABS: HEMATOCRIT 39.4 % (35.0-46.0); HEMOGLOBIN 13.5 GM/DL (11.6-15.3); MEAN CELL VOLUME 82.7 FL (80.0-100.0); MEAN CORPUSCULAR HEMOGLOBIN 28.4 PG (27.0-34.0); MEAN CORPUSCULAR HGB CONC 34.3 % (32.0-36.0); MEAN PLATELET VOLUME 8.6 FL (7.0-11.0); PLATELET COUNT 302 TH/MM3 (150-450); RED BLOOD COUNT 4.77 MIL/MM3 (4.00-5.30); RED CELL DISTRIBUTION WIDTH 13.9 % (11.6-17.2); WHITE BLOOD COUNT 12.1 TH/MM3 (4.0-11.0)
[2017-09-15 11:40] LABS: BACTERIA, URINE RARE /hpf; BILIRUBIN, URINE NEG (NEG); BLOOD, URINE NEG (NEG); GLUCOSE,URINE NEG (NEG); KETONE, URINE NEG (NEG); NITRITE,URINE NEG (NEG); SQUAMOUS EPITHELIAL CELL URINE 2 /hpf (0-5); URINE COLOR YELLOW (YELLW/STRAW); URINE LEUKOCYTE ESTERASE NEG (NEG)
[2017-09-15 11:46] LABS: ALBUMIN 2.6 GM/DL (3.4-5.0); AST (GOT) 22 U/L (15-37); BICARBONATE 21.7 MEQ/L (21.0-32.0); BLOOD UREA NITROGEN 10 MG/DL (7-18); CALCIUM 9.1 MG/DL (8.5-10.1); CHLORIDE 106 MEQ/L (98-107); CREATININE 0.59 MG/DL (0.50-1.00); GLOMERULAR FILTRATION RATE 120 ML/MIN (>89); GLUCOSE,RANDOM 85 MG/DL (74-106); SODIUM (NA) 136 MEQ/L (136-145)
[2017-09-15 11:49] LABS: ALKALINE PHOSPHATASE 114 U/L (45-117); ALT (GPT) 26 U/L (10-53); TOTAL BILIRUBIN ADULT 0.2 MG/DL (0.2-1.0); TOTAL PROTEIN 7.5 GM/DL (6.4-8.2)
[2017-09-15] MEDS ORDERED: ONDANSETRON ODT 4 MG TAB PO PRN (13:00)
[2017-09-15] MEDS ORDERED: ONDANSETRON HCL 4 MG/2 ML VIAL IV PUSH PRN (13:00)
[2017-09-15] MEDS ORDERED: ALUMINUM/MAGNESIUM/SIMETH 30 ML CUP PO PRN (13:00)
[2017-09-15] MEDS ORDERED: SODIUM CHLORIDE 0.9% FLUSH 10 ML FLUSH IV FLUSH PRN (13:00)
[2017-09-15] MEDS ORDERED: ZOLPIDEM TARTRATE 5 MG TAB PO PRN (13:00)
[2017-09-15] MEDS: FAMOTIDINE 20 MG TAB PO PRN (17:47)
--- NOTE | 2017-09-15 18:52 | PD.OB.ANTE ---
Subjective Interval History Quiet with no complaints normotensive labs all normal no symptoms of labor STEVEN 6 marginal IUGR 24 hour urine pending hx of delivery at this time for pre eclampsia Objective Vital Signs Vital Signs Date Time Temp Pulse Resp B/P (MAP) Pulse Ox O2 Delivery O2 Flow Rate FiO2 09/15/17 16:15 97 131/77 (95) 09/15/17 15:51 98.4 18 09/15/17 15:47 102 135/92 (106) 09/15/17 12:10 18 09/15/17 12:00 93 111/72 (85) 09/15/17 11:46 95 138/91 (107) 09/15/17 11:30 92 119/76 (90) 09/15/17 11:15 85 113/66 (82) 09/15/17 11:14 98.1 16 09/15/17 11:00 92 132/79 (96) 09/15/17 10:45 92 122/82 (95) Lab & Micro Results Test 09/15/17 11:10 White Blood Count 12.1 TH/MM3 Red Blood Count 4.77 MIL/MM3 Hemoglobin 13.5 GM/DL Hematocrit 39.4 % Mean Corpuscular Volume 82.7 FL Mean Corpuscular Hemoglobin 28.4 PG Mean Corpuscular Hemoglobin Concent 34.3 % Red Cell Distribution Width 13.9 % Platelet Count 302 TH/MM3 Mean Platelet Volume 8.6 FL Urine Color YELLOW Urine Turbidity CLEAR Urine pH 7.0 Urine Specific [place] 1.013 Urine Protein NEG mg/dL Urine Glucose (UA) NEG mg/dL Urine Ketones NEG mg/dL Urine Occult Blood NEG Urine Nitrite NEG Urine Bilirubin NEG Urine Urobilinogen LESS THAN 2.0 MG/DL Urine Leukocyte Esterase NEG Urine RBC LESS THAN 1 /hpf Urine WBC 1 /hpf Urine Squamous Epithelial Cells 2 /hpf Urine Bacteria RARE /hpf Microscopic Urinalysis Comment CULT NOT INDICATED Urine Random Creatinine 64 MG/DL Urine Random Total Protein 12 MG/DL Urine Protein/Creatinine Ratio 0.19 Blood Urea Nitrogen 10 MG/DL Creatinine 0.59 MG/DL Random Glucose 85 MG/DL Total Protein 7.5 GM/DL Albumin 2.6 GM/DL Calcium Level 9.1 MG/DL Uric Acid 4.2 MG/DL Alkaline Phosphatase 114 U/L Aspartate Amino Transf (AST/SGOT) 22 U/L Alanine Aminotransferase (ALT/SGPT) 26 U/L Total Bilirubin 0.2 MG/DL Sodium Level 136 MEQ/L Potassium Level 4.0 MEQ/L Chloride Level 106 MEQ/L Carbon Dioxide Level 21.7 MEQ/L Anion Gap 8 MEQ/L Estimat Glomerular Filtration Rate 120 ML/MIN Physical Exam GENERAL: Well-nourished, well-developed patient. CARDIOVASCULAR: Regular rate and rhythm without murmurs, gallops, or rubs. RESPIRATORY: Breath sounds equal bilaterally. No accessory muscle use. ABDOMEN/GI: Abdomen soft, non-tender. Fundus: [-] GENITOURINARY: External Genitalia: intact and normal in appearance Cervix: [-] Dilatation: [-] Effacement: [-] Station: [-] Presentation: [-] Membranes: [-] Uterine Contractions: [-] FHT's: Category: [-] Baseline: [-] Reactive: [-] Variability: [-] Decels: [-] EXTREMITIES: No cyanosis or edema, non-tender, without signs of DVT. Assessment and Plan Assessment and Plan if stable post 24 hour urine collection home on bedrest Reba Nam MD Sep 15, 2017 18:52
[2017-09-15] MEDS: ACETAMINOPHEN 325 MG TAB PO PRN (20:20)
[2017-09-15] MEDS: FERROUS SULFATE 325 MG (65 MG ELEMENTAL IRON) TAB PO SCH (20:20)
[2017-09-15] MEDS: SODIUM CHLORIDE 0.9% FLUSH 10 ML FLUSH IV FLUSH SCH (20:20)
[2017-09-16] VITALS (11 sets, daily range): BP systolic 102–142; BP diastolic 61–92; PULSE 72–97; RESP 8–18; TEMP 97.6–98.2
--- NOTE | 2017-09-16 08:14 | PD.OB.ANTE ---
Subjective Interval History no HERNANDEZ, BV or CP this AM, baby moving well, NST R Objective Vital Signs Vital Signs Date Time Temp Pulse Resp B/P (MAP) Pulse Ox O2 Delivery O2 Flow Rate FiO2 09/16/17 07:46 16 09/16/17 03:06 72 09/16/17 03:06 16 09/16/17 03:06 102/61 (75) 09/16/17 03:05 97.6 09/15/17 23:02 97.8 16 09/15/17 23:02 97 110/64 (79) 09/15/17 19:07 16 09/15/17 19:06 97.6 09/15/17 19:06 92 122/82 (95) 09/15/17 16:15 97 131/77 (95) 09/15/17 15:51 98.4 18 09/15/17 15:47 102 135/92 (106) 09/15/17 12:10 18 09/15/17 12:00 93 111/72 (85) 09/15/17 11:46 95 138/91 (107) 09/15/17 11:30 92 119/76 (90) 09/15/17 11:15 85 113/66 (82) 09/15/17 11:14 98.1 16 09/15/17 11:00 92 132/79 (96) 09/15/17 10:45 92 122/82 (95) Lab & Micro Results Test 09/15/17 11:10 White Blood Count 12.1 TH/MM3 Red Blood Count 4.77 MIL/MM3 Hemoglobin 13.5 GM/DL Hematocrit 39.4 % Mean Corpuscular Volume 82.7 FL Mean Corpuscular Hemoglobin 28.4 PG Mean Corpuscular Hemoglobin Concent 34.3 % Red Cell Distribution Width 13.9 % Platelet Count 302 TH/MM3 Mean Platelet Volume 8.6 FL Urine Color YELLOW Urine Turbidity CLEAR Urine pH 7.0 Urine Specific [place] 1.013 Urine Protein NEG mg/dL Urine Glucose (UA) NEG mg/dL Urine Ketones NEG mg/dL Urine Occult Blood NEG Urine Nitrite NEG Urine Bilirubin NEG Urine Urobilinogen LESS THAN 2.0 MG/DL Urine Leukocyte Esterase NEG Urine RBC LESS THAN 1 /hpf Urine WBC 1 /hpf Urine Squamous Epithelial Cells 2 /hpf Urine Bacteria RARE /hpf Microscopic Urinalysis Comment CULT NOT INDICATED Urine Random Creatinine 64 MG/DL Urine Random Total Protein 12 MG/DL Urine Protein/Creatinine Ratio 0.19 Blood Urea Nitrogen 10 MG/DL Creatinine 0.59 MG/DL Random Glucose 85 MG/DL Total Protein 7.5 GM/DL Albumin 2.6 GM/DL Calcium Level 9.1 MG/DL Uric Acid 4.2 MG/DL Alkaline Phosphatase 114 U/L Aspartate Amino Transf (AST/SGOT) 22 U/L Alanine Aminotransferase (ALT/SGPT) 26 U/L Total Bilirubin 0.2 MG/DL Sodium Level 136 MEQ/L Potassium Level 4.0 MEQ/L Chloride Level 106 MEQ/L Carbon Dioxide Level 21.7 MEQ/L Anion Gap 8 MEQ/L Estimat Glomerular Filtration Rate 120 ML/MIN Physical Exam GENERAL: Well-nourished, well-developed patient. CARDIOVASCULAR: Regular rate and rhythm without murmurs, gallops, or rubs. RESPIRATORY: Breath sounds equal bilaterally. No accessory muscle use. ABDOMEN/GI: Abdomen soft, non-tender. Fundus: [-] GENITOURINARY: External Genitalia: intact and normal in appearance Cervix: [-] deferred Dilatation: [-] Effacement: [-] Station: [-] Presentation: [-] Membranes: [-] Uterine Contractions: [-] FHT's: Category: [-] 1 Baseline: [-] Reactive: [-] R Variability: [-] Decels: [-] EXTREMITIES: No cyanosis or edema, non-tender, without signs of DVT, 1-2 + DTRs. Assessment and Plan Problem List: (1) state, incidental ICD Codes: Z33.1 - state, incidental Assessment and Plan if stable post 24 hour urine collection home on bedrest STEVEN 6, borderline IUGR Lauren Carrington MD Sep 16, 2017 08:14
[2017-09-16] MEDS: FERROUS SULFATE 325 MG (65 MG ELEMENTAL IRON) TAB PO SCH (09:00)
[2017-09-16] MEDS: ASPIRIN 81 MG CHEW TAB PO SCH (09:13)
[2017-09-16] MEDS: MULTIVIT/MIN/PREN/FOL AC/IRON PRENATAL TAB PO SCH (09:13)
[2017-09-16] MEDS: SODIUM CHLORIDE 0.9% FLUSH 10 ML FLUSH IV FLUSH SCH ×2 (09:13→21:19)
[2017-09-16] MEDS: DOCUSATE SODIUM 100 MG CAP PO SCH (09:13)
[2017-09-16] MEDS: ACETAMINOPHEN 325 MG TAB PO PRN (13:16)
[2017-09-16] MEDS: FAMOTIDINE 20 MG TAB PO PRN (15:37)
[2017-09-17 01:35] VITALS: BP 115/66; PULSE 80; RESP 18
[2017-09-17 06:03] VITALS: RESP 18
[2017-09-17 06:04] VITALS: BP 133/83; PULSE 79
[2017-09-17 07:00] VITALS: TEMP 97.6
[2017-09-17] MEDS: MULTIVIT/MIN/PREN/FOL AC/IRON PRENATAL TAB PO SCH (08:52)
[2017-09-17] MEDS: DOCUSATE SODIUM 100 MG CAP PO SCH (08:52)
[2017-09-17] MEDS: ASPIRIN 81 MG CHEW TAB PO SCH (08:52)
[2017-09-17] MEDS: SODIUM CHLORIDE 0.9% FLUSH 10 ML FLUSH IV FLUSH SCH (08:52)
--- NOTE | 2017-09-17 08:55 | PD.OB.ANTE ---
Subjective Diagnosis: (1) state, incidental Interval History no alexandra/bulrry vision or ruq pain. Antepartum ROS: Reports: movement normal, Denies: New complaints, Loss of fluid, Vaginal bleeding, Contractions, Other Objective Vital Signs Vital Signs Date Time Temp Pulse Resp B/P (MAP) Pulse Ox O2 Delivery O2 Flow Rate FiO2 09/17/17 07:00 97.6 09/17/17 06:04 79 133/83 (100) 09/17/17 06:03 18 09/17/17 01:35 18 09/17/17 01:35 80 115/66 (82) 09/16/17 21:22 81 127/82 (97) 09/16/17 21:20 97.7 18 09/16/17 18:20 8 09/16/17 18:20 97.6 09/16/17 18:20 18 09/16/17 18:18 97 142/87 (105) 09/16/17 14:10 85 137/86 (103) 09/16/17 13:16 87 142/92 (109) 09/16/17 13:13 98.2 18 Physical Exam GENERAL: Well-nourished, well-developed patient. CARDIOVASCULAR: Regular rate and rhythm without murmurs, gallops, or rubs. RESPIRATORY: Breath sounds equal bilaterally. No accessory muscle use. ABDOMEN/GI: Abdomen soft, non-tender. Fundus:34 GENITOURINARY: External Genitalia: intact and normal in appearance defer FHT's: Category: I Baseline: [-] Reactive: y Variability: mod Decels: [-] EXTREMITIES: No cyanosis or edema, non-tender, without signs of DVT. Assessment and Plan Problem List: (1) state, incidental ICD Codes: Z33.1 - state, incidental Assessment and Plan 31-year-old IUP at 33.6 1. Pre-eclampsia- steroids completed previous visit. 24 hour urine normal, labs normal. good bp. Will keep inpt per [facility] recommendation. Deliver for signs of severity. Will have nicu visit 2. IUGR 3. Borderline oligohydramnios 4. MTHFR heterozygote 5. History of preeclampsia and delivery at 34 weeks, IOL for preeclampsia 6. Ehrlos Danlos III syndrome- normal echo in 7. close spacing 8. wellbeing:Overall reassuring testing with reactive NST, occasional mild variable but appeared to have resolved, will continue prolonged monitoring. Yamileth Ng MD Sep 17, 2017 08:55
[2017-09-17 11:42] VITALS: BP 133/78; PULSE 93; TEMP 97.9
[2017-09-17 12:00] VITALS: RESP 18
--- NOTE | 2017-09-17 13:04 | HHI.DCPOC ---
Discharge Care Plan Report Symptoms to Your Doctor -Temperature above 100.5 degrees -Redness, of incision or excessive or foul smelling drainage -Unusual pain or calf pain -Increased vaginal bleeding -Painful or difficulty urinating -Feelings of extreme sadness or anxiety after 2 weeks Goals to Promote Your Health * To prevent worsening of your condition and complications * To maintain your health at the optimal level Directions to Meet Your Goals Take your medications as prescribed Follow your dietary instruction Follow activity as directed Ensure plenty of rest for recovery Drink fluids for hydration Keep your appointments as scheduled Take your immunizations and boosters as scheduled If your symptoms worsen call your PCP, if no PCP go to Urgent Care Center or Emergency Room Smoking is Dangerous to Your Health. Avoid second hand smoke Call the 24-hour crisis hotline for domestic abuse at Reba Nam MD Sep 17, 2017 13:03
== END 2017-09-17 15:02 | disposition home or self-care (01) ==
LOC: HOBED 10:31 → H2EA 12:05
PROVIDERS: ADMIT Obstetrics & Gynecology; ATTEND Obstetrics & Gynecology
DX: O36.5930 Maternal care for other known or suspected poor fetal growth, third trimester, not applicable or unspecified (principal); O41.03X0 Oligohydramnios, third trimester, not applicable or unspecified; Q79.6 Ehlers-Danlos syndromes; O14.93 Unspecified pre-eclampsia, third trimester; Z3A.33 33 weeks gestation of pregnancy
CPT/HCPCS: 59025; 76819; 76820; 76821; 80053; 81001; 82570; 82575; 84156; 84157; 84550; 85027; 96360; 99285; G0378; J7120

== ENCOUNTER 2017-09-18 17:39 | Inpatient (IN) | payer OTHER ==
[~2017-09-18] VITALS: Ht 170.2 cm; Wt 97.5 kg
[2017-09-18 18:25] VITALS: BP 118/96; PULSE 101
[2017-09-18 18:30] VITALS: RESP 18
--- NOTE | 2017-09-18 19:14 | HHI.PR ---
STUDENT ACCOUNTS COORDINATOR Note Note S: no complaints, denies HERNANDEZ, blurry vision, epigastric pain, no contractions. O: VS: BP: 119/96, pulse 101 Exam: Deferred exam, performed by Dr. Carrington as an outpatient today FHTs: 130s, moderate variability, accelerations present, no decelerations TOCO: Irregular contractions A/P 31-year-old at 34 weeks and 0 days by L/7 with JHONNY of 10/30/2017 here for IOL for PREC 1. IUP: Category 1 tracing -Cephalic by bedside ultrasound on presentation, GBS negative - EFW (08/31/2017) = 1442g (10%), AC 5% - s/p BMZ on 08/31 2. Induction of labor: Secondary to preeclampsia, IUGR, and borderline STEVEN: Cervix unfavorable, Cervidil overnight likely AROM in the morning 3. Preeclampsia without severe features: doing well asymptomatic, BP mild range , will mag if severe features. -24 hour urine from 418mg (09/02) and repeat on 09/16 was WNL at 278. Pt most recent HELLP labs on 09/16 WNL, repeat here pending 4. IUGR / borderline STEVEN: recent growth above, on 09/16 STEVEN 6.5, MVP 2.8, 10/10 BPP, normal UA dopplers. 5. Anna-Danlos type III: Nonvascular type, normal maternal echo this . Alonso Broussard MD Sep 18, 2017 19:14
[2017-09-18] MEDS ORDERED: DINOPROSTONE 10 MG INSERT-LEAVE FOR 12 HOURS VAGINAL ONE (19:30)
[2017-09-18] MEDS ORDERED: SODIUM CHLORIDE 0.9% FLUSH 10 ML FLUSH IV FLUSH PRN (19:30)
[2017-09-18] MEDS ORDERED: CITRIC ACID-SODIUM CITRATE LIQ 30 ML UDC PO SCH (19:30)
[2017-09-18] MEDS ORDERED: MINERAL OIL 10 ML VIAL TOPICAL PRN (20:00)
[2017-09-18] MEDS ORDERED: NS 500 ML BOLUS IV PRN (20:00)
[2017-09-18] MEDS ORDERED: OXYTOCIN 30 UNITS 500ML PREMIX IV ONE (20:00)
[2017-09-18] MEDS ORDERED: NS 1000 ML IV PRN (20:00)
[2017-09-18] MEDS ORDERED: LACTATED RINGER'S 1000 ML BOLUS IV PRN (20:00)
[2017-09-18] MEDS ORDERED: LIDOCAINE HCL 1% 50 ML VIAL I-DERMAL PRN (20:00)
[2017-09-18] MEDS ORDERED: LIDOCAINE HCL 1% 50 ML VIAL INFIL PRN (20:00)
[2017-09-18 20:23] LABS: AUTOMATED NEUTROPHIL # 9.4 TH/MM3 (1.8-7.7); BASOPHIL # 0.1 TH/MM3 (0-0.2); BASOPHIL % 0.4 % (0.0-2.0); EOSINOPHIL # 0.2 TH/MM3 (0-0.4); EOSINOPHIL % 1.5 % (0.0-4.0); HEMATOCRIT 37.8 % (35.0-46.0); HEMOGLOBIN 12.6 GM/DL (11.6-15.3); LYMPH % 20.1 % (9.0-44.0); LYMPHOCYTE # 2.7 TH/MM3 (1.0-4.8); MEAN CELL VOLUME 82.8 FL (80.0-100.0); MEAN CORPUSCULAR HEMOGLOBIN 27.5 PG (27.0-34.0); MEAN CORPUSCULAR HGB CONC 33.3 % (32.0-36.0); MEAN PLATELET VOLUME 8.2 FL (7.0-11.0); MONO % 6.7 % (0.0-8.0); MONOCYTE # 0.9 TH/MM3 (0-0.9); NEUT % 71.3 % (16.0-70.0); PLATELET COUNT 309 TH/MM3 (150-450); RED BLOOD COUNT 4.56 MIL/MM3 (4.00-5.30); RED CELL DISTRIBUTION WIDTH 14.2 % (11.6-17.2); WHITE BLOOD COUNT 13.2 TH/MM3 (4.0-11.0)
[2017-09-18 20:24] VITALS: BP 121/73; PULSE 94; RESP 18
[2017-09-18 20:38] LABS: ALBUMIN 2.6 GM/DL (3.4-5.0); AST (GOT) 18 U/L (15-37); BICARBONATE 21.6 MEQ/L (21.0-32.0); BLOOD UREA NITROGEN 10 MG/DL (7-18); CALCIUM 8.6 MG/DL (8.5-10.1); CHLORIDE 107 MEQ/L (98-107); CREATININE 0.59 MG/DL (0.50-1.00); GLOMERULAR FILTRATION RATE 120 ML/MIN (>89); GLUCOSE,RANDOM 79 MG/DL (74-106); SODIUM (NA) 137 MEQ/L (136-145)
[2017-09-18 20:43] LABS: ALKALINE PHOSPHATASE 108 U/L (45-117); ALT (GPT) 23 U/L (10-53); TOTAL BILIRUBIN ADULT 0.3 MG/DL (0.2-1.0); TOTAL PROTEIN 6.9 GM/DL (6.4-8.2)
[2017-09-18] MEDS ORDERED: ZOLPIDEM TARTRATE 5 MG TAB PO PRN (21:00)
[2017-09-18 22:18] LABS: BILIRUBIN, URINE NEG (NEG); BLOOD, URINE NEG (NEG); GLUCOSE,URINE NEG (NEG); KETONE, URINE NEG (NEG); MUCUS URINE FEW /lpf (OCC); NITRITE,URINE NEG (NEG); PH, URINE 6.5 (5.0-8.5); SQUAMOUS EPITHELIAL CELL URINE 3 /hpf (0-5); URINE COLOR YELLOW (YELLW/STRAW); URINE LEUKOCYTE ESTERASE SMALL (NEG)
[2017-09-18 22:26] VITALS: BP 127/80; PULSE 103; RESP 18; TEMP 98.7
[2017-09-19] VITALS (45 sets, daily range): BP systolic 99–138; BP diastolic 61–92; PULSE 81–137; RESP 16–20; TEMP 97.5–98.7; O2SAT 95
[2017-09-19] MEDS ORDERED: LACTATED RINGER'S 1000 ML INJ 1,000 ML IV SCH (07:00)
[2017-09-19] MEDS ORDERED: fentaNYL 2MCG-BUPIV 0.125% INJ 100 ML ONE (07:30)
--- NOTE | 2017-09-19 08:19 | HHI.PR ---
BACK WEDGER Note Note S: no complaints, denies HERNANDEZ, blurry vision, epigastric pain, no contractions. O: Exam: pt 6cm/60/-1, SROM at 6am, clear fluid, cervidil removed by nursing. FHTs: 130s, moderate variability, accelerations present, no decelerations TOCO: contractions poorly traced A/P 31-year-old at 34 weeks and 1 days by L/7 with JHONNY of 10/30/2017 here for IOL for PREC 1. IUP: Category 1 tracing -Cephalic by bedside ultrasound on presentation, GBS negative - EFW (08/31/2017) = 1442g (10%), AC 5% - s/p BMZ on 08/31 - NICU consult placed 2. Induction of labor: Secondary to preeclampsia, IUGR, and borderline STEVEN: s/ p cervidil, SROM, continue expectant management, may need pit if no change, anticipate - s/p epidural. 3. Preeclampsia without severe features: doing well asymptomatic, BP mild range to normotensive, will mag if severe features. -24 hour urine from 418mg (09/02) and repeat on 09/16 was WNL at 278. HELLP on arrival WNL 4. IUGR / borderline STEVEN: recent growth above, on 09/16 STEVEN 6.5, MVP 2.8, 10/10 BPP, normal UA dopplers. 5. Anna-Danlos type III: Nonvascular type, normal maternal echo this . Alonso Broussard MD Sep 19, 2017 08:19
[2017-09-19] MEDS ORDERED: NO SYSTEM NARCOTICS PRN (08:45)
[2017-09-19] MEDS ORDERED: fentaNYL 2MCG-BUPIV 0.125% 100 ML EPIDURAL SCH (08:45)
[2017-09-19] MEDS ORDERED: ePHEDrine/NS 25 MG/5 ML SYRINGE IV PUSH PRN (08:45)
[2017-09-19] MEDS ORDERED: DO NOT ADMINISTER ANTICOAGULANTS PRN (08:45)
[2017-09-19] MEDS ORDERED: OXYTOCIN 30 UNITS-500ML PREMIX 500 ML ONE (09:51)
--- NOTE | 2017-09-19 10:54 | PD.OB.DELI ---
Weeks gestation: 34 (34.1 weeks) Pt started active labor?: No Medical induction of labor?: Yes Artificial rupture of membrane: No Anesthesia: Epidural Episiotomy: None Vaginal Delivery: Normal, Spontaneous Presentation: Occiput anterior, Vertex Nuchal Cord: None Delayed cord clamping (45 sec): Yes Shoulder Dystocia: Other (no dystocia) : Female, Single Delivery date: Sep 19, 2017 Delivery time: 10:48 One Minute : 8 Five Minute : 9 Weight: 4lbs 3oz Placenta: Spontaneous delivery, Intact, 3 vessel cord, Other (suspected chronic abruption based on appearance, placenta sent to pathology) Laceration: No lacerations Estimated blood loss: 200 cc Additional Information Diagnoses: 1. Intrauterine growth restriction 2. Preeclampsia severe features 3. Maternal Anna-Danlos type III 4. Borderline amniotic fluid index The patient began pushing after the bed was broken down, NICU was in the room and prepared for delivery, the head upon was allowed to restitute naturally after delivery with a supported perineum, with gentle downward guidance anterior shoulder was delivered followed by gentle upper guidance for the posterior shoulder, the torso and lower extremities delivered with ease with continued perineal support. The infant had spontaneous cry and was placed on mom's abdomen for skin to skin contact, we allow delayed cord clamping. After the cord was clamped and cut, cord blood was obtained. Pitocin was bolused and with fundal massage the placenta was delivered with in five minutes of the , there is minimal bleeding from above and uterus was firm. The perineum vagina and cervix were inspected and found to be intact. The patient tolerated the procedure well and was left in the birthing suite with her in NICU team. Additional information: -Placenta sent to pathology -Umbilical cord Arterial blood gas collected and pending Aolnso Broussard MD Sep 19, 2017 10:54
--- NOTE | 2017-09-19 10:57 | HHI.DCPOC ---
Discharge Care Plan Diagnosis: (1) Normal vaginal delivery (2) 34 weeks gestation of (3) Intrauterine growth restriction (IUGR) affecting care of mother (4) Pre-eclampsia in third trimester Your Health Problems Are: Vaginal delivery Report Symptoms to Your Doctor -Temperature above 100.5 degrees -Redness, of incision or excessive or foul smelling drainage -Unusual pain or calf pain -Increased vaginal bleeding -Painful or difficulty urinating -Feelings of extreme sadness or anxiety after 2 weeks Goals to Promote Your Health * To prevent worsening of your condition and complications * To maintain your health at the optimal level Directions to Meet Your Goals Take your medications as prescribed Follow your dietary instruction Follow activity as directed Ensure plenty of rest for recovery Drink fluids for hydration Keep your appointments as scheduled Take your immunizations and boosters as scheduled If your symptoms worsen call your PCP, if no PCP go to Urgent Care Center or Emergency Room Smoking is Dangerous to Your Health. Avoid second hand smoke Call the 24-hour crisis hotline for domestic abuse at Alonso Broussard MD Sep 19, 2017 10:57
[2017-09-19] MEDS ORDERED: OXYTOCIN 30 UNITS-500ML PREMIX 500 ML IV SCH (11:00)
[2017-09-19] MEDS ORDERED: ACETAMINOPHEN 325 MG TAB PO PRN (11:00)
[2017-09-19] MEDS ORDERED: DOCUSATE SODIUM 50 MG/SENNA 8.6 MG TAB PO PRN (11:00)
[2017-09-19] MEDS ORDERED: ZOLPIDEM TARTRATE 5 MG TAB PO PRN (11:00)
[2017-09-19] MEDS ORDERED: ONDANSETRON ODT 4 MG TAB PO PRN (11:00)
[2017-09-19] MEDS ORDERED: ALUMINUM/MAGNESIUM/SIMETH 30 ML CUP PO PRN (11:00)
[2017-09-19] MEDS ORDERED: WITCH HAZEL 50%/GLYCERIN 12.5% 40 PAD JAR TOPICAL PRN (11:00)
[2017-09-19] MEDS ORDERED: SODIUM CHLORIDE 0.9% FLUSH 10 ML FLUSH IV FLUSH PRN (11:00)
[2017-09-19] MEDS ORDERED: BENZOCAINE 20% TOPICAL SPRAY 60 ML CAN TOPICAL PRN (11:00)
[2017-09-19] MEDS: IBUPROFEN 800 MG TAB PO PRN ×2 (15:01→23:39)
[2017-09-19] MEDS ORDERED: DIPHTH/TETANUS/ACEL PERTUSSIS (BOOSTER) 0.5 ML VIAL/PFS IM ONE (16:00)
[2017-09-19] MEDS ORDERED: MEASLES, MUMPS, RUBELLA VACCINE 0.5 ML VIAL SQ ONE (16:00)
[2017-09-19] MEDS: oxyCODONE/ACETAMINOPHEN 5 MG/325 MG TAB PO PRN ×2 (19:32→23:39)
[2017-09-19] MEDS ORDERED: SODIUM CHLORIDE 0.9% FLUSH 10 ML FLUSH IV FLUSH SCH (21:00)
[2017-09-20] MEDS ORDERED: IBUP-232 PO (07:02)
--- NOTE | 2017-09-20 07:05 | HHI.OB ---
Subjective Post Day: 1 Remarks doing well, VB < cycles, pain controlled, no headaches, vision changes, epigastric or RUQ pain. new born doing well in NICU Objective Vitals/I&O Vital Signs Date Time Temp Pulse Resp B/P (MAP) Pulse Ox O2 Delivery O2 Flow Rate FiO2 09/19/17 19:30 92 126/80 (95) 09/19/17 19:30 97.5 16 95 09/19/17 13:45 97.7 98 20 117/81 (93) 09/19/17 12:30 112 123/71 (88) 09/19/17 12:15 118 123/80 (94) 09/19/17 12:00 108 120/86 (97) 09/19/17 11:52 18 09/19/17 11:45 108 127/74 (91) 09/19/17 11:33 98.1 18 09/19/17 11:30 99 118/77 (91) 09/19/17 11:15 97 124/85 (98) 09/19/17 11:00 108 126/61 (82) 09/19/17 10:45 120 128/82 (97) 09/19/17 10:31 137 121/77 (92) 09/19/17 10:15 106 129/79 (96) 09/19/17 10:00 118 129/92 (104) 09/19/17 09:45 105 125/82 (96) 09/19/17 09:30 93 117/80 (92) 09/19/17 09:15 81 120/76 (91) 09/19/17 09:00 94 113/76 (88) 09/19/17 08:55 97.9 98 18 09/19/17 08:50 102 09/19/17 08:45 100 110/75 (87) 09/19/17 08:45 103 09/19/17 08:40 96 09/19/17 08:36 93 114/71 (85) 09/19/17 08:35 104 09/19/17 08:33 106 111/74 (86) 09/19/17 08:30 103 121/76 (91) 09/19/17 08:30 110 09/19/17 08:27 102 114/71 (85) 09/19/17 08:25 103 09/19/17 08:24 108 113/70 (84) 09/19/17 08:21 103 111/70 (84) 09/19/17 08:20 101 09/19/17 08:18 97 120/72 (88) 09/19/17 08:15 100 09/19/17 08:14 93 120/81 (94) 09/19/17 08:10 110 09/19/17 07:28 121 138/76 (96) 09/19/17 07:23 105 132/90 (104) Objective Remarks GENERAL: Well-nourished, well-developed patient. CARDIOVASCULAR: Regular rate and rhythm without murmurs, gallops, or rubs. RESPIRATORY: Breath sounds equal bilaterally. No accessory muscle use. ABDOMEN/GI: Abdomen soft, non-tender. Fundus: Firm, non-tender at umbilicus. GENITOURINARY: Light to moderate bleeding. EXTREMITIES: No cyanosis or edema, non-tender, without signs of DVT. Medications and IVs Current Medications Medications (Trade) Dose Ordered Sig/Lili Route Start Time Stop Time Status Last Admin Lactated Ringer's 1,000 ml @ 125 mls/hr Q8H IV 09/19/17 07:00 09/18/17 20:06 (Xylocaine 1% Inj (50 ml)) 0.1 ml UNSCH X1 PRN I-DERMAL 09/18/17 20:00 09/21/17 19:59 (Bicitra Liq) 30 ml FORK REPAIRER PO 09/18/17 19:30 09/21/17 19:29 (Xylocaine 1% Inj (50 ml)) 10 ml UNSCH X1 PRN INFIL 09/18/17 20:00 09/21/17 19:59 Miscellaneous Information No systemic narcotics to be given except... UNSCH PRN .XX 09/19/17 08:45 09/20/17 08:44 Miscellaneous Information DO NOT ADMINISTER ANY ANTICOAGUL... UNSCH PRN .XX 09/19/17 08:45 09/20/17 08:44 (ePHEDrine/NS 25 MG/5 ML SYR) 10 mg UNSCH PRN IV PUSH 09/19/17 08:45 09/20/17 08:44 (NS Flush) 2 ml BID IV FLUSH 09/19/17 21:00 (NS Flush) 2 ml UNSCH PRN IV FLUSH 09/19/17 11:00 (Motrin) 800 mg Q8H PRN PO 09/19/17 11:00 09/19/17 23:39 (Americaine 20% Top Spr) 1 spray Q4H PRN TOPICAL 09/19/17 11:00 09/19/17 15:00 (Tucks Pads) 1 applic QID PRN TOPICAL 09/19/17 11:00 09/19/17 15:00 (Etelvina-Colace) 2 tab Q12H PRN PO 09/19/17 11:00 09/19/17 21:55 (Ambien) 5 mg HS PRN PO 09/19/17 11:00 09/19/17 21:55 (Mag-Al Plus Susp Liq) 15 ml Q8H PRN PO 09/19/17 11:00 (Zofran Odt) 4 mg Q6H PRN PO 09/19/17 11:00 (Percocet 5-325 Mg) 1 tab Q4H PRN PO 09/19/17 19:15 09/19/17 23:39 Assessment/Plan Assessment and Plan 31 yo s/p @ 34w1d, 1. PPD #1: AF, VSS, d/c home, discussed , expectations and follow up. 2. PREC w/o severe features: BPs normotensive, FU 1 week in office, discussed preeclampsia sx Alonso Broussard MD Sep 20, 2017 07:04
[2017-09-20] MEDS: IBUPROFEN 800 MG TAB PO PRN (08:40)
== END 2017-09-20 13:08 | disposition home or self-care (01) | DRG 775 ==
LOC: H2EA 17:39 → H1EA 09-19 18:26
PROVIDERS: ADMIT Obstetrics & Gynecology; ATTEND Obstetrics & Gynecology
PROC: 10E0XZZ Delivery of Products of Conception, External Approach (ICD-10-PCS; principal; 2017-09-19)
DX: O14.14 Severe pre-eclampsia complicating childbirth (principal); O36.5930 Maternal care for other known or suspected poor fetal growth, third trimester, not applicable or unspecified; Q79.6 Ehlers-Danlos syndromes; Z37.0 Single live birth; Z3A.34 34 weeks gestation of pregnancy; O41.8X30 Other specified disorders of amniotic fluid and membranes, third trimester, not applicable or unspecified
CPT/HCPCS: 59025; 80053; 80307; 81001; 85025; 88307; G0481; J2590; J3010; J7120

== ENCOUNTER 2017-09-27 11:32 | Emergency (ER) | payer OTHER ==
[~2017-09-27 11:32] MED LIST changes: -ASPI-516 CHEW; +IBUP-232 PO
[2017-09-27] MEDS ORDERED: ACETAMIN 325 MG/BUTALBITAL 50 MG/CAFFEINE 40 MG TAB PO ONE (12:00)
--- NOTE | 2017-09-27 12:04 | HHI.HP ---
HPI Chief Complaint Severe headache over last 24 hours Date Seen: Sep 27, 2017 Time Seen: 11:50 Travel History International Travel<30 Days: No Contact w/Intl Traveler<30Days: No Known Affected Area: No History of Present Illness HPI 31 y/o ,S/P on 09/19/17 of a health female infant, @34 weeks, was induced due to Pe with severe features. Patient developed H/A over the last 24 hours, some c/o photophobia, NO BV,NO light flashes ,NO N/V/E Weeks Gestation: 34 Para: 2 : 2 History Past Medical History Narrative Medical 1 week , was visiting infant in NICU when she c/o severe H/A. Past Surgical History Surgical History: No Previous Surgery Family History Family History: Negative Social History Alcohol Use: No Tobacco Use: No Substance Abuse: No Allergies-Medications (Allergen,Severity, Reaction): Coded Allergies: Sulfa (Sulfonamide Antibiotics) (Verified Allergy, Severe, unknown, ) penicillin G (Verified Allergy, Severe, anaphylaxis, 09/18/17) Home Meds Active Scripts Ibuprofen (Ibuprofen) 600 Mg Tab, 600 MG PO Q6H Y for PAIN, #30 TAB 0 Refills Prov:Alonso Broussard MD 09/20/17 Reported Medications Calcium-Vitamins D & K (Calcium + D & K) 500-1,000-40 Mg-Unit-Mcg Chew, 1 TAB CHEW for Nutritional Supplement, TAB 0 Refills 09/01/17 Fish Oil-Cholecalciferol (Fish Oil + D3) 1,200-1,000 Mg-Unit Cap, 1 CAP PO DAILY for Nutritional Supplement, #30 CAP 0 Refills 09/01/17 Vit-Ferrous Fumarate () 1 Tab Tab, 1 TAB PO DAILY for Nutritional Supplement, #30 TAB 0 Refills 09/11/16 Review of Systems Eyes: Pain HENT: Headaches Physical Exam Narrative GENERAL: Well-nourished, well-developed patient. SKIN: Warm and dry. HEAD: Normocephalic and atraumatic. EYES: No scleral icterus. No injection or drainage. ENT: No nasal drainage noted. Mucous membranes pink. Airway patent. NECK: Supple, trachea midline. No JVD. CARDIOVASCULAR: Regular rate and rhythm RESPIRATORY: Breath sounds equal bilaterally. No accessory muscle use. BREASTS: Bilateral exam showed no masses , no retractions, no nipple discharge. ABDOMEN/GI: Abdomen soft, non-tender, EXTREMITIES: No cyanosis or edema. BACK: Nontender without obvious deformity. No CVA tenderness. NEUROLOGICAL: Awake and alert. Motor and sensory grossly within normal limits. Five out of 5 muscle strength in all muscle groups. Normal speech. DTR 1+, no clonus Caprini VTE Risk Assessment Caprini VTE Risk Assessment: No/Low Risk (score <= 1) Caprini Risk Assessment Model Point Value = 1 Point Value = 2 Point Value = 3 Point Value = 5 Age 41-60 Minor surgery BMI > 25 kg/m2 Swollen legs Varicose veins or History of unexplained or recurrent spontaneous Oral contraceptives or hormone replacement Sepsis (< 1 month) Serious lung disease, including pneumonia (< 1 month) Abnormal pulmonary function Acute myocardial infarction Congestive heart failure (< 1 month) History of inflammatory bowel disease Medical patient at bed rest Age 61-74 Arthroscopic surgery Major open surgery (> 45 min) Laparoscopic surgery (> 45 min) Malignancy Confined to bed (> 72 hours) Immobilizing plaster cast Central venous access Age >= 75 History of VTE Family history of VTE Factor V Leiden Prothrombin [id number] Lupus anticoagulant Anticardiolipin antibodies Elevated serum homocysteine Heparin-induced thrombocytopenia Other congenital or acquired thrombophilia Stroke (< 1 month) Elective arthroplasty Hip, pelvis, or leg fracture Acute spinal cord injury (< 1 month) Prophylaxis Regimen Total Risk Factor Score Risk Level Prophylaxis Regimen 0-1 Low Early ambulation 2 Moderate Order ONE of the following: *Sequential Compression Device (SCD) *Heparin 5000 units SQ BID 3-4 Higher Order ONE of the following medications: *Heparin 5000 units SQ TID *Enoxaparin/Lovenox 40 mg SQ daily (WT < 150 kg, CrCl > 30 mL/min) *Enoxaparin/Lovenox 30 mg SQ daily (WT < 150 kg, CrCl > 10-29 mL/min) *Enoxaparin/Lovenox 30 mg SQ BID (WT < 150 kg, CrCl > 30 mL/min) AND/OR *Sequential Compression Device (SCD) 5 or more Highest Order ONE of the following medications: *Heparin 5000 units SQ TID (Preferred with Epidurals) *Enoxaparin/Lovenox 40 mg SQ daily (WT < 150 kg, CrCl > 30 mL/min) *Enoxaparin/Lovenox 30 mg SQ daily (WT < 150 kg, CrCl > 10-29 mL/min) *Enoxaparin/Lovenox 30 mg SQ BID (WT < 150 kg, CrCl > 30 mL/min) AND *Sequential Compression Device (SCD) Data Data Vital Signs Reviewed: Yes Orders Orders Cbc No Diff, Includes Plts (09/27/17 11:48) Comprehensive Metabolic Panel (09/27/17 11:48) [id number] 325-50-40 Mg (Fioricet 3 (09/27/17 12:00) Assessment/Plan Assessment and Plan PPD#8, s/p at 34 weeks, new episode of severe h/a without any focal neurologic findings. Order cbc,cmp, hydrate and start fioracet. BP mildly elevated, if labs and clinical status remain stable will discharge on fioracet. reinforced rest . Discharge Planning routine Attending Attestation Seen and evaluated by Ciaran Valverde MD Sep 27, 2017 12:04
[2017-09-27] MEDS ORDERED: BUTA1CAP PO (12:22)
[2017-09-27 12:38] LABS: HEMATOCRIT 37.9 % (35.0-46.0); MEAN CELL VOLUME 83.8 FL (80.0-100.0); MEAN CORPUSCULAR HEMOGLOBIN 28.8 PG (27.0-34.0); MEAN CORPUSCULAR HGB CONC 34.4 % (32.0-36.0); MEAN PLATELET VOLUME 7.9 FL (7.0-11.0); PLATELET COUNT 344 TH/MM3 (150-450); RED BLOOD COUNT 4.52 MIL/MM3 (4.00-5.30); RED CELL DISTRIBUTION WIDTH 14.4 % (11.6-17.2)
[2017-09-27 12:54] LABS: ALBUMIN 2.9 GM/DL (3.4-5.0); ALT (GPT) 31 U/L (10-53); AST (GOT) 18 U/L (15-37); BICARBONATE 25.1 MEQ/L (21.0-32.0); BLOOD UREA NITROGEN 18 MG/DL (7-18); CALCIUM 8.4 MG/DL (8.5-10.1); CHLORIDE 107 MEQ/L (98-107); CREATININE 0.93 MG/DL (0.50-1.00); GLOMERULAR FILTRATION RATE 71 ML/MIN (>89); GLUCOSE,RANDOM 96 MG/DL (74-106); SODIUM (NA) 138 MEQ/L (136-145)
[2017-09-27 12:56] LABS: ALKALINE PHOSPHATASE 93 U/L (45-117); TOTAL BILIRUBIN ADULT 0.2 MG/DL (0.2-1.0); TOTAL PROTEIN 6.9 GM/DL (6.4-8.2)
== END 2017-09-27 13:22 | disposition home or self-care (01) ==
LOC: HOBED 11:32
DX: O90.89 Other complications of the puerperium, not elsewhere classified (principal); R51 Headache
CPT/HCPCS: 36415; 80053; 85027; 99283